=== PATIENT | female | born 1945 | race Caucasian/White ===

== ENCOUNTER 2019-09-27 09:03 | Observation (INO) | payer MEDICARE, OTHER ==
[2019-09-27] VITALS (11 sets, daily range): BP systolic 137–164; BP diastolic 56–84
[~2019-09-27] VITALS: Ht 157.5 cm; Wt 75.0 kg
[~2019-09-27 09:03] MED LIST: ALBU8HFA PO; APIX5TAB3 PO; ASPI-1265 PO; ATOR80TA PO; BECL8.7A6 INH; CARV6.253 PO; FURO-150 PO; METF500T PO; POTA10TA10 PO; PRED20TA PO
[2019-09-27 09:31] LABS: BASOPHILS # (AUTO) 0.1 X10'3 (0-0.2); BASOPHILS % (AUTO) 0.6 % (0-1); EOSINOPHILS # (AUTO) 0.2 X10'3 (0-0.9); EOSINOPHILS % (AUTO) 1.7 % (0-6); LYMPHOCYTES # (AUTO) 1.3 X10'3 (1.1-4.8); LYMPHOCYTES % (AUTO) 13.3 % (21-51); MEAN CORPUSCULAR HEMOGLOBIN 26.6 PG (27.0-31.0); MEAN CORPUSCULAR VOLUME 85.8 FL (78-98); MEAN PLATELET VOLUME 9.2 FL (7.4-10.4); MONOCYTES # (AUTO) 1.2 X10'3 (0-0.9); MONOCYTES % (AUTO) 12.4 % (2-12); NEUTROPHILS # (AUTO) 6.8 X10'3 (1.8-7.7); PLATELET COUNT 425 X10'3 (140-440); RED BLOOD COUNT 1.99 X10'6 (4.20-5.60); RED CELL DISTRIBUTION WIDTH 14.2 % (11.5-14.5); WHITE BLOOD COUNT 9.4 X10'3 (4.5-11.0)
[2019-09-27 09:35] LABS: HEMOGLOBIN 5.3 g/dl (12.0-16.0)
[2019-09-27 09:36] LABS: HEMATOCRIT 17.1 % (35.0-45.0)
[2019-09-27 09:45] LABS: PARTIAL THROMBOPLASTIN TIME 24 SECONDS (22-32)
[2019-09-27 09:50] LABS: ALANINE AMINOTRANSFERASE 234 U/L (12-78); ALBUMIN 3.1 G/DL (3.4-5.0); ALBUMIN/GLOBULIN RATIO 0.9 (1.1-1.5); ALKALINE PHOSPHATASE 85 IU/L (46-116); ANION GAP 13 (8-16); ASPARTATE AMINO TRANSFERASE 160 U/L (10-37); BILIRUBIN,TOTAL 0.6 MG/DL (0.1-1.0); BLOOD UREA NITROGEN 35 MG/DL (7-18); BUN/CREATININE RATIO 19.4 (6.6-38.0); CALCIUM 8.7 MG/DL (8.5-10.1); CHLORIDE 106 MMOL/L (99-107); GLUCOSE 147 MG/DL (70-104); POTASSIUM 4.4 MMOL/L (3.5-5.1); SODIUM 143 MMOL/L (135-145); TOTAL CARBON DIOXIDE 24.4 MMOL/L (24-32); TOTAL PROTEIN 6.4 G/DL (6.4-8.2); eGFR 28 ML/MIN
[2019-09-27] MEDS ORDERED: pantoprazole 40 MG vial IV ONE (09:55)
[2019-09-27] MEDS ORDERED: mag hydrox/Alum hydrox/simeth 30ml oral suspension PO PRN (10:20)
[2019-09-27] MEDS ORDERED: magnesium hydroxide 30ml (MOM) UD suspension PO PRN (10:20)
[2019-09-27] MEDS ORDERED: HYDROcodone/acetaminophen 10/325mg tab PO PRN (10:20)
[2019-09-27] MEDS ORDERED: magnesium 4gm in 100ml NS 100 ML IV PRN (10:20)
[2019-09-27] MEDS ORDERED: magnesium Cl slow-release 64mg tablet PO PRN (10:20)
[2019-09-27] MEDS ORDERED: ondansetron/PF 4mg/2ml inj IV PRN (10:20)
[2019-09-27] MEDS ORDERED: HYDROcodone/acetaminophen 5mg/325mg tablet PO PRN (10:20)
[2019-09-27] MEDS ORDERED: potassium Cl 20 mEq SR tablet PO PRN ×2 (10:20)
[2019-09-27] MEDS ORDERED: potassium CL 10mEq/100ml bag 100 ML IV PRN ×2 (10:20)
[2019-09-27] MEDS ORDERED: magnesium 2GM in 50ml NS 50 ML IV PRN (10:20)
[2019-09-27] MEDS ORDERED: acetaminophen 325mg tablet PO PRN ×2 (10:20)
[2019-09-27 11:26] LABS: OCCULT BLOOD STOOL NEGATIVE (Neg)
--- NOTE | 2019-09-27 11:30 | NUR ---
Patient in room ORTHO 4009. I have received report from Ryan ALVARADO and had the opportunity to ask questions and assume patient care. Ryan said he did not start the blood transfusion in the ER, with the patients Hgb 5.3. He said the doctor wanted to start blood transfusion up stairs.
[2019-09-27] MEDS ORDERED: MULT-933 PO (13:36)
[2019-09-27] MEDS ORDERED: CYAN-34 PO (13:39)
[2019-09-27] MEDS ORDERED: OMEP40CA13 PO (13:40)
[2019-09-27] MEDS ORDERED: IRON45TA7 PO (13:43)
[2019-09-27 14:42] LABS: MEAN CORPUSCULAR HEMOGLOBIN 28.2 PG (27.0-31.0); MEAN CORPUSCULAR HGB CONC 32.7 g/dL (33.0-36.5); MEAN CORPUSCULAR VOLUME 86.4 FL (78-98); PLATELET COUNT 389 X10'3 (140-440); RED BLOOD COUNT 2.33 X10'6 (4.20-5.60); RED CELL DISTRIBUTION WIDTH 14.3 % (11.5-14.5); WHITE BLOOD COUNT 8.7 X10'3 (4.5-11.0)
[2019-09-27 14:51] LABS: HEMOGLOBIN 6.6 g/dl (12.0-16.0)
[2019-09-27 14:52] LABS: HEMATOCRIT 20.1 % (35.0-45.0)
[2019-09-27 15:05] LABS: HEMOGLOBIN A1C 5.2 % (4.5-6.2)
[2019-09-27 15:48] LABS: % IRON SATURATION 8 % (11-46); IRON 23 UG/DL (49-151); TOTAL IRON BINDING CAPACITY 290 UG/DL (259-388)
[2019-09-27 16:59] LABS: FERRITIN 20 NG/ML (8-252)
[2019-09-27] MEDS: metFORMIN 500mg tablet PO SCH (17:33)
--- NOTE | 2019-09-27 18:04 | NUR ---
Problems reprioritized. Patient report given, questions answered & plan of care reviewed with Daya ALVARADO.
--- NOTE | 2019-09-27 18:17 | NUR ---
Patient in room ORTHO 4009. I have received report from Dominic ALVARADO and had the opportunity to ask questions and assume patient care.
[2019-09-27 19:01] LABS: HEMATOCRIT 22.8 % (35.0-45.0); HEMOGLOBIN 7.7 g/dl (12.0-16.0); MEAN CORPUSCULAR HEMOGLOBIN 28.8 PG (27.0-31.0); MEAN CORPUSCULAR HGB CONC 33.5 g/dL (33.0-36.5); MEAN CORPUSCULAR VOLUME 85.8 FL (78-98); MEAN PLATELET VOLUME 9.2 FL (7.4-10.4); PLATELET COUNT 371 X10'3 (140-440); RED BLOOD COUNT 2.66 X10'6 (4.20-5.60); WHITE BLOOD COUNT 9.4 X10'3 (4.5-11.0)
[2019-09-27] MEDS: furosemide 20MG tablet PO SCH (19:54)
[2019-09-27] MEDS: carvedilol 6.25mg tablet PO SCH (19:54)
[2019-09-27] MEDS: K and/or MAG REPLACEMENT MC SCH (19:58)
[2019-09-27] MEDS ORDERED: temazepam 15mg capsule PO PRN (21:00)
[2019-09-28 06:00] VITALS: BP 147/50
--- NOTE | 2019-09-28 06:22 | NUR ---
Problems reprioritized. Patient report given, questions answered & plan of care reviewed with Tori ALVARADO.
--- NOTE | 2019-09-28 06:25 | NUR ---
Patient in room ORTHO 4009. I have received report from [facility] and had the opportunity to ask questions and assume patient care.
[2019-09-28 06:51] LABS: HEMATOCRIT 22.6 % (35.0-45.0); HEMOGLOBIN 7.6 g/dl (12.0-16.0); MEAN CORPUSCULAR HEMOGLOBIN 28.7 PG (27.0-31.0); MEAN CORPUSCULAR HGB CONC 33.8 g/dL (33.0-36.5); MEAN PLATELET VOLUME 9.1 FL (7.4-10.4); PLATELET COUNT 370 X10'3 (140-440); RED BLOOD COUNT 2.66 X10'6 (4.20-5.60); RED CELL DISTRIBUTION WIDTH 14.2 % (11.5-14.5); WHITE BLOOD COUNT 8.5 X10'3 (4.5-11.0)
[2019-09-28] MEDS: K and/or MAG REPLACEMENT MC SCH (07:16)
[2019-09-28] MEDS: metFORMIN 500mg tablet PO SCH (07:25)
[2019-09-28 07:27] LABS: ANION GAP 12 (8-16); BLOOD UREA NITROGEN 35 MG/DL (7-18); CALCIUM 8.6 MG/DL (8.5-10.1); CHLORIDE 106 MMOL/L (99-107); CREATININE 1.67 MG/DL (0.40-0.90); GLUCOSE 98 MG/DL (70-104); MAGNESIUM 2.2 MG/DL (1.5-2.4); POTASSIUM 4.5 MMOL/L (3.5-5.1); SODIUM 143 MMOL/L (135-145); TOTAL CARBON DIOXIDE 25.5 MMOL/L (24-32); eGFR 30 ML/MIN
[2019-09-28] MEDS: carvedilol 6.25mg tablet PO SCH (07:29)
[2019-09-28] MEDS ORDERED: pantoprazole 40mg Tablet.DR PO SCH (07:30)
[2019-09-28] MEDS: furosemide 20MG tablet PO SCH (07:30)
[2019-09-28] MEDS ORDERED: multivitamins, therapeutics tablet PO SCH (08:00)
[2019-09-28] MEDS ORDERED: FERROUS SULFATE 142 MG TABLET.ER (45mg elemental) PO SCH (08:00)
[2019-09-28] MEDS ORDERED: potassium chloride 10mEq ER tablet PO SCH (08:00)
--- NOTE | 2019-09-28 09:24 | NUR ---
DM consult: Pt with A1c 5.2, DM education not warranted at this time. Will continue to follow. Addendum: 09/28/19 at [address] Amended: Links added.
[2019-09-28 10:00] VITALS: BP 126/70
[2019-09-28] MEDS ORDERED: FERR142T7 PO (11:45)
--- NOTE | 2019-09-28 12:12 | NUR ---
Discharge orders in. Pt's son will be picking her up after he is off work at 16:00.
--- NOTE | 2019-09-28 16:30 | NUR ---
Reviewed discharge instructions with pt. Pt verbalized understanding. Pt is alert, oriented and does not have c/o pain or discomfort at this time. Pt was wheeled downstairs to be driven home by her son. All of pt's belongings were returned to pt.
--- NOTE | 2019-10-02 15:22 | NUR ---
Case Management DC follow up: spoke to pt via telephone: reported, "doing great","getting strength back", "I am better than ever". Denies SOB, resp distress, NV, CARRILLO, dizziness, weakness, cp, emergent/acute general pain. verbalizes understanding of meds, why prescribed, taking as ordered, no ase noted. pt states unable to get the OTC Fe slo release 142 mg so just got OTC 135mg. Stated she will talk to PCP about a prescription and if what she was able to get OTC is fine. pt does have O2 w/[employer], but has not needed to use for about 3 years. Verbalizes understanding of s/s that would warrant 9-11/ER visit for evaluation. needs met, questions answered at ID. No further questions at this time. Addendum: 10/02/19 at 1529 by Peace Hadley RN Case Management DC follow up: pt acknowledged advised to have discussion w/PCP about considering colonoscopy, EGD, obstetrical tech referrals.
== END 2019-09-28 16:30 | disposition home or self-care (01) ==
LOC: ER 09:04 → ED HOLD 10:16 → ORTHO 4S 11:20
PROVIDERS: ADMIT Family Medicine; ATTEND Family Medicine
DX: D62 Acute posthemorrhagic anemia (principal); I13.0 Hypertensive heart and chronic kidney disease with heart failure and stage 1 through stage 4 chronic kidney disease, or unspecified chronic kidney disease; E11.22 Type 2 diabetes mellitus with diabetic chronic kidney disease; I50.9 Heart failure, unspecified; N18.3 Chronic kidney disease, stage 3 (moderate); J44.9 Chronic obstructive pulmonary disease, unspecified; I25.2 Old myocardial infarction; E78.00 Pure hypercholesterolemia, unspecified; K92.2 Gastrointestinal hemorrhage, unspecified; E78.5 Hyperlipidemia, unspecified; I48.91 Unspecified atrial fibrillation; I25.10 Atherosclerotic heart disease of native coronary artery without angina pectoris; Z95.1 Presence of aortocoronary bypass graft; Z95.5 Presence of coronary angioplasty implant and graft; Z79.01 Long term (current) use of anticoagulants; Z79.899 Other long term (current) drug therapy
CPT/HCPCS: 36415; 36430; 71045; 80048; 80053; 82272; 82728; 82746; 82948; 83036; 83540; 83550; 83735; 85025; 85027; 85610; 85730; 86885; 86900; 86901; 86920; 87081; 93005; 96374; 97116; 97161; 97530; 99291; C9113; G0378; P9016; 12001

== ENCOUNTER 2020-07-31 17:35 | Inpatient (IN) | payer MEDICARE, OTHER ==
[~2020-07-31] VITALS: Ht 162.6 cm; Wt 88.1 kg
[~2020-07-31 17:35] MED LIST changes: -ALBU8HFA PO; -APIX5TAB3 PO; -ASPI-1265 PO; -BECL8.7A6 INH; +CEPH500C5 PO; +CYAN-34 PO; +DOXY-224 PO; +FERR142T7 PO; +MULT-933 PO; +OMEP40CA13 PO; -PRED20TA PO
[2020-07-31] MEDS ORDERED: LIDOcaine 2% 10ml TOPICAL JELLY (Urojet) TP ONE ×2 (18:05→20:30)
[2020-07-31 18:43] LABS: BASOPHILS % (AUTO) 0.4 % (0-1); EOSINOPHILS # (AUTO) 0.2 X10'3 (0-0.9); EOSINOPHILS % (AUTO) 2.7 % (0-6); LYMPHOCYTES # (AUTO) 0.7 X10'3 (1.1-4.8); LYMPHOCYTES % (AUTO) 10.3 % (21-51); MONOCYTES # (AUTO) 0.6 X10'3 (0-0.9); MONOCYTES % (AUTO) 9.4 % (2-12); NEUTROPHILS # (AUTO) 5.1 X10'3 (1.8-7.7); NEUTROPHILS % (AUTO) 77.2 % (42-75)
[2020-07-31 18:54] LABS: ALANINE AMINOTRANSFERASE 33 U/L (12-78); ALBUMIN 2.9 G/DL (3.4-5.0); ALBUMIN/GLOBULIN RATIO 0.8 (1.1-1.5); ALKALINE PHOSPHATASE 114 IU/L (46-116); ANION GAP -2 (8-16); ASPARTATE AMINO TRANSFERASE 21 U/L (10-37); BILIRUBIN,TOTAL 0.7 MG/DL (0.1-1.0); BLOOD UREA NITROGEN 42 MG/DL (7-18); BUN/CREATININE RATIO 22.3 (6.6-38.0); CALCIUM 9.3 MG/DL (8.5-10.1); CHLORIDE 110 MMOL/L (99-107); CREATININE 1.88 MG/DL (0.40-0.90); GLUCOSE 131 MG/DL (70-104); POTASSIUM 5.8 MMOL/L (3.5-5.1); SODIUM 147 MMOL/L (135-145); TOTAL CARBON DIOXIDE 38.6 MMOL/L (24-32); TOTAL PROTEIN 6.4 G/DL (6.4-8.2); eGFR 26 ML/MIN
[2020-07-31 18:55] LABS: CLARITY,URINE CLEAR (Clear); COLOR,URINE YELLOW (Yellow); GLUCOSE, URINE NEGATIVE (Neg); KETONES,URINE NEGATIVE (Neg); LEUKOCYTE ESTERASE ,URINE NEGATIVE (Neg); NITRITES, URINE NEGATIVE (Neg); OCCULT BLOOD,URINE NEGATIVE (Neg); PROTEIN,URINE 30 mg/dl (Neg); UROBILINOGEN,URINE 0.2 E.U/dL (0.2-1.0)
[2020-07-31 18:56] LABS: UA COLLECTION TYPE FOLEY CATH
[2020-07-31 18:58] LABS: BACTERIA,URINE 1+ /HPF (Neg); RBC,URINE NONE SEEN /HPF (0-2); SQUAMOUS EPITHELIAL CELL,UR MODERATE /LPF (FEW); WBC,URINE NONE SEEN /HPF (0-4)
[2020-07-31 19:02] LABS: LIPASE 197 U/L (73-393)
[2020-07-31 19:15] LABS: HEMATOCRIT 41.5 % (35.0-45.0); HEMOGLOBIN 13.1 g/dl (12.0-16.0); MEAN CORPUSCULAR HEMOGLOBIN 29.7 PG (27.0-31.0); MEAN CORPUSCULAR HGB CONC 31.4 g/dL (33.0-36.5); MEAN CORPUSCULAR VOLUME 94.5 FL (78-98); MEAN PLATELET VOLUME 8.2 FL (7.4-10.4); PLATELET COUNT 242 X10'3 (140-440); RED CELL DISTRIBUTION WIDTH 17.8 % (11.5-14.5)
[2020-07-31 19:41] LABS: TROPONIN I 0.05 NG/ML (0.0-0.05)
[2020-07-31] MEDS ORDERED: ondansetron/PF 4mg/2ml inj IV PRN (20:30)
[2020-07-31] MEDS ORDERED: bisacodyl 10mg suppository rectal RC PRN (20:30)
[2020-07-31] MEDS ORDERED: magnesium Cl slow-release 64mg tablet PO PRN (20:30)
[2020-07-31] MEDS ORDERED: potassium Cl 20 mEq SR tablet PO PRN ×2 (20:30)
[2020-07-31] MEDS ORDERED: potassium CL 10mEq/100ml bag 100 ML IV PRN ×2 (20:30)
[2020-07-31] MEDS ORDERED: magnesium 4gm in 100ml NS 100 ML IV PRN (20:30)
[2020-07-31] MEDS ORDERED: mag hydrox/Alum hydrox/simeth 30ml oral suspension PO PRN (20:30)
[2020-07-31] MEDS ORDERED: acetaminophen 325mg tablet PO PRN (20:30)
[2020-07-31] MEDS ORDERED: magnesium 2GM in 50ml NS 50 ML IV PRN (20:30)
[2020-07-31] MEDS ORDERED: FURO-149 PO (21:56)
--- NOTE | 2020-07-31 22:04 | NUR ---
Ladonna saavedra in ED - 07/31/20 at 2205 by SONYA GAVE PATIENT TURKEY SANDWICH, JUICE AND WATER. ALSO PROVIDED A WARM BLANKET AT THIS TIME.
--- NOTE | 2020-08-01 01:40 | NUR ---
Pt falling asleep during DART. Pt asked if I can not continue DART at this time and to let her sleep. Will let patient sleep and continue to monitor.
[2020-08-01 02:30] VITALS: BP 99/51
[2020-08-01 02:40] LABS: BASOPHILS % (AUTO) 0.4 % (0-1); EOSINOPHILS # (AUTO) 0.1 X10'3 (0-0.9); EOSINOPHILS % (AUTO) 0.8 % (0-6); LYMPHOCYTES # (AUTO) 0.8 X10'3 (1.1-4.8); LYMPHOCYTES % (AUTO) 10.1 % (21-51); MEAN PLATELET VOLUME 8.6 FL (7.4-10.4); MONOCYTES # (AUTO) 0.8 X10'3 (0-0.9); MONOCYTES % (AUTO) 10.1 % (2-12); NEUTROPHILS # (AUTO) 6.3 X10'3 (1.8-7.7); NEUTROPHILS % (AUTO) 78.6 % (42-75)
[2020-08-01 02:57] LABS: ALANINE AMINOTRANSFERASE 37 U/L (12-78); ALBUMIN 2.9 G/DL (3.4-5.0); ALBUMIN/GLOBULIN RATIO 0.9 (1.1-1.5); ALKALINE PHOSPHATASE 110 IU/L (46-116); ANION GAP 1 (8-16); ASPARTATE AMINO TRANSFERASE 22 U/L (10-37); BILIRUBIN,TOTAL 0.7 MG/DL (0.1-1.0); BLOOD UREA NITROGEN 42 MG/DL (7-18); BUN/CREATININE RATIO 21.5 (6.6-38.0); CALCIUM 9.2 MG/DL (8.5-10.1); CHLORIDE 108 MMOL/L (99-107); CREATININE 1.95 MG/DL (0.40-0.90); GLUCOSE 161 MG/DL (70-104); POTASSIUM 4.9 MMOL/L (3.5-5.1); SODIUM 146 MMOL/L (135-145); TOTAL CARBON DIOXIDE 36.6 MMOL/L (24-32); TOTAL PROTEIN 6.3 G/DL (6.4-8.2); eGFR 25 ML/MIN
[2020-08-01 03:02] LABS: HEMATOCRIT 37.6 % (35.0-45.0); HEMOGLOBIN 11.8 g/dl (12.0-16.0); MEAN CORPUSCULAR HEMOGLOBIN 29.6 PG (27.0-31.0); MEAN CORPUSCULAR HGB CONC 31.5 g/dL (33.0-36.5); MEAN CORPUSCULAR VOLUME 94.2 FL (78-98); PLATELET COUNT 217 X10'3 (140-440); RED BLOOD COUNT 3.99 X10'6 (4.20-5.60)
[2020-08-01 03:04] LABS: MAGNESIUM 2.5 MG/DL (1.5-2.4)
--- NOTE | 2020-08-01 05:31 | NUR ---
Orientee documentation: I have reviewed and agree with all interventions, assessments performed and documented by Karen Domingo Medication Administration: For this medication-pass time frame, all medication were reviewed, dispensed, administered and documented per hospital policy by Karen ALVARADO
[2020-08-01] MEDS ORDERED: MESSAGE TO PHARMACY PO ONE (06:05)
[2020-08-01] MEDS ORDERED: glucagon, human recombinant 1mg kit SUBCUT PRN (06:05)
[2020-08-01] MEDS ORDERED: dextrose ORAL solution 15 GM/59 ML bottle PO PRN ×2 (06:05)
[2020-08-01] MEDS ORDERED: dextrose 50%-water 50ml dispensing syringe IV PRN ×2 (06:05)
--- NOTE | 2020-08-01 06:15 | NUR ---
Problems reprioritized. Patient report given, questions answered & plan of care reviewed with Rika ALVARADO.
--- NOTE | 2020-08-01 06:18 | NUR ---
Problems reprioritized. Patient report given, questions answered & plan of care reviewed with Rika ALVARADO.
--- NOTE | 2020-08-01 06:48 | NUR ---
paged dr herrera re: called rapid response. pt stuporous, vss
--- NOTE | 2020-08-01 06:51 | NUR ---
PAGED DR REYNOLDS RE: PAGER ID: [phone] MESSAGE: YUE JONES.. CALLED [facility]. [id number]
[2020-08-01 07:00] VITALS: BP 113/63
[2020-08-01 07:16] LABS: ABG BASE EXCESS 0.9 mmol/L (-2.0-2.0); ABG HCO3 30.2 mmol/L (22.0-26.0); ABG PO2 (T) 43.6 mmHg (75.0-100.0); ALLEN'S TEST POSITIVE; FCOHb 1.3 % (0.0-3.9); FMetHb 0.1 % (0.0-1.5); FO2Hb 84.8 % (94-97); PATIENT TEMPERATURE 36.3; TOTAL HEMOGLOBIN 13.2 G/dl (12.0-16.0)
[2020-08-01] MEDS: K and/or MAG REPLACEMENT MC SCH ×2 (08:00→20:00)
[2020-08-01] MEDS: carvedilol 6.25mg tablet PO SCH ×2 (08:00→20:21)
[2020-08-01] MEDS: docusate sod 100mg capsule PO SCH ×2 (08:00→20:21)
[2020-08-01] MEDS: furosemide 40mg/4ml inj IV SCH ×2 (08:37→20:20)
[2020-08-01 11:00] VITALS: BP 109/66
--- NOTE | 2020-08-01 12:49 | NUR ---
DM consult, A1c 7.1; pt previously given written DM education 06/04; additional DM education not indicated at this time. Addendum: 08/01/20 at [address] Amended: Links added.
[2020-08-01 14:15] LABS: ABG BASE EXCESS 5.7 mmol/L (-2.0-2.0); ABG HCO3 34.3 mmol/L (22.0-26.0); ABG OXYGEN SATURATION 98.6 % (94-97); ABG PCO2 (T) 69.3 mmHg (32.0-45.0); ABG PO2 (T) 122.4 mmHg (75.0-100.0); ALLEN'S TEST POSITIVE; FMetHb 0.1 % (0.0-1.5); FO2Hb 97.5 % (94-97); PATIENT TEMPERATURE 36.3; RESPIRATORY RATE 28 b/min; TIDAL VOLUME 802 mL; TOTAL HEMOGLOBIN 12.6 G/dl (12.0-16.0)
--- NOTE | 2020-08-01 14:21 | NUR ---
PAGER ID: [phone] MESSAGE: [id number] JESSE. NEW ABGS : PH 7.309, PCO2 69.3, PO2 122.4, KAMARI PCU
[2020-08-01 16:14] VITALS: BP 100/54
--- NOTE | 2020-08-01 17:57 | NUR ---
Patient in room U 3014. I have received report from MARTHA ALVARADO and had the opportunity to ask questions and assume patient care. Addendum: 08/01/20 at 3727 by Juliet Lutz RN TIME ON NOTE SHOULD BE 2937
[2020-08-01 18:00] VITALS: BP 108/64
--- NOTE | 2020-08-01 18:31 | NUR ---
Problems reprioritized. Patient report given, questions answered & plan of care reviewed with JOSÉ MIGUEL ALVARADO.
--- NOTE | 2020-08-01 18:51 | NUR ---
Patient in room PCU 3014. I have received report from Rika ALVARADO and had the opportunity to ask questions and assume patient care.
[2020-08-01] MEDS ORDERED: enoxaparin 40mg/0.4ml syringe SQ SCH (20:00)
[2020-08-01] MEDS: enoxaparin 30mg/0.3ml syringe SQ SCH (20:21)
[2020-08-01] MEDS: insulin glargine (Lantus) pen - multi-dose SQ SCH (21:00)
[2020-08-01] MEDS ORDERED: atorvastatin 20mg tablet PO SCH (21:00)
[2020-08-01 22:00] VITALS: BP 103/58
[2020-08-01] MEDS: HYDROcodone/acetaminophen 5mg/325mg tablet PO PRN (22:50)
[2020-08-02 02:00] VITALS: BP 110/61
[2020-08-02 06:00] VITALS: BP 95/56
[2020-08-02 06:07] LABS: BASOPHILS % (AUTO) 0.5 % (0-1); EOSINOPHILS # (AUTO) 0.2 X10'3 (0-0.9); EOSINOPHILS % (AUTO) 3.1 % (0-6); HEMATOCRIT 34.6 % (35.0-45.0); HEMOGLOBIN 10.9 g/dl (12.0-16.0); LYMPHOCYTES # (AUTO) 0.8 X10'3 (1.1-4.8); LYMPHOCYTES % (AUTO) 13.2 % (21-51); MEAN CORPUSCULAR HEMOGLOBIN 28.8 PG (27.0-31.0); MEAN CORPUSCULAR HGB CONC 31.5 g/dL (33.0-36.5); MEAN CORPUSCULAR VOLUME 91.4 FL (78-98); MEAN PLATELET VOLUME 8.6 FL (7.4-10.4); MONOCYTES # (AUTO) 0.7 X10'3 (0-0.9); MONOCYTES % (AUTO) 11.5 % (2-12); NEUTROPHILS # (AUTO) 4.5 X10'3 (1.8-7.7); NEUTROPHILS % (AUTO) 71.7 % (42-75); PLATELET COUNT 194 X10'3 (140-440); RED BLOOD COUNT 3.79 X10'6 (4.20-5.60); WHITE BLOOD COUNT 6.2 X10'3 (4.5-11.0)
[2020-08-02 06:23] LABS: ALANINE AMINOTRANSFERASE 27 U/L (12-78); ALBUMIN 2.3 G/DL (3.4-5.0); ALBUMIN/GLOBULIN RATIO 0.8 (1.1-1.5); ALKALINE PHOSPHATASE 97 IU/L (46-116); ANION GAP 5 (8-16); ASPARTATE AMINO TRANSFERASE 17 U/L (10-37); BLOOD UREA NITROGEN 44 MG/DL (7-18); BUN/CREATININE RATIO 23.9 (6.6-38.0); CALCIUM 8.6 MG/DL (8.5-10.1); CHLORIDE 103 MMOL/L (99-107); CREATININE 1.84 MG/DL (0.40-0.90); GLUCOSE 115 MG/DL (70-104); MAGNESIUM 2.3 MG/DL (1.5-2.4); POTASSIUM 4.2 MMOL/L (3.5-5.1); SODIUM 144 MMOL/L (135-145); TOTAL PROTEIN 5.2 G/DL (6.4-8.2); eGFR 27 ML/MIN
--- NOTE | 2020-08-02 06:40 | NUR ---
Patient in room PCU 3014. I have received report from Edel ALVARADO and had the opportunity to ask questions and assume patient care.
--- NOTE | 2020-08-02 06:48 | NUR ---
Problems reprioritized. Patient report given, questions answered & plan of care reviewed with Jaspal ALVARADO.
[2020-08-02] MEDS: furosemide 40mg/4ml inj IV SCH ×2 (07:51→20:15)
[2020-08-02] MEDS: carvedilol 6.25mg tablet PO SCH ×2 (07:51→20:16)
[2020-08-02] MEDS: docusate sod 100mg capsule PO SCH ×2 (07:51→20:16)
[2020-08-02] MEDS: K and/or MAG REPLACEMENT MC SCH ×2 (08:00→20:00)
[2020-08-02 11:00] VITALS: BP 104/60
[2020-08-02 12:06] LABS: ABG HCO3 36.3 mmol/L (22.0-26.0); ABG OXYGEN SATURATION 98.4 % (94-97); ABG PCO2 (T) 57.4 mmHg (32.0-45.0); ABG PO2 (T) 117.8 mmHg (75.0-100.0); ALLEN'S TEST POSITIVE; FCOHb 0.4 % (0.0-3.9); FMetHb 0.1 % (0.0-1.5); FO2Hb 97.9 % (94-97); RESPIRATORY RATE 28 b/min; TOTAL HEMOGLOBIN 11.9 G/dl (12.0-16.0)
--- NOTE | 2020-08-02 14:44 | NUR ---
PAGER ID: [phone] MESSAGE: Re: June Ebonie. Room: [facility]. Pt is not on any blood thinners. Do you want heparin subq started? -[facility] #[id number] Dr. Roman paged concerning pt's blood thinners.
[2020-08-02 15:00] VITALS: BP 103/57
[2020-08-02 18:00] VITALS: BP 105/65
--- NOTE | 2020-08-02 18:20 | NUR ---
Problems reprioritized. Patient report given, questions answered & plan of care reviewed with Edel ALVARADO.
--- NOTE | 2020-08-02 18:48 | NUR ---
Patient in room PCU 3014. I have received report from Jaspal ALVARADO and had the opportunity to ask questions and assume patient care.
[2020-08-02] MEDS: atorvastatin 20mg tablet PO SCH (20:16)
[2020-08-02] MEDS: enoxaparin 30mg/0.3ml syringe SQ SCH (20:17)
[2020-08-02] MEDS: HYDROcodone/acetaminophen 5mg/325mg tablet PO PRN (20:17)
[2020-08-02] MEDS: insulin glargine (Lantus) pen - multi-dose SQ SCH (21:00)
[2020-08-02 22:00] VITALS: BP 107/56
[2020-08-03 02:00] VITALS: BP 105/76
[2020-08-03 06:12] LABS: BASOPHILS % (AUTO) 0.5 % (0-1); EOSINOPHILS # (AUTO) 0.2 X10'3 (0-0.9); EOSINOPHILS % (AUTO) 3.3 % (0-6); HEMATOCRIT 33.1 % (35.0-45.0); HEMOGLOBIN 10.6 g/dl (12.0-16.0); LYMPHOCYTES # (AUTO) 1.1 X10'3 (1.1-4.8); LYMPHOCYTES % (AUTO) 18.9 % (21-51); MEAN CORPUSCULAR HEMOGLOBIN 29.1 PG (27.0-31.0); MEAN CORPUSCULAR VOLUME 90.7 FL (78-98); MEAN PLATELET VOLUME 8.9 FL (7.4-10.4); MONOCYTES # (AUTO) 0.7 X10'3 (0-0.9); MONOCYTES % (AUTO) 12.6 % (2-12); NEUTROPHILS # (AUTO) 3.8 X10'3 (1.8-7.7); NEUTROPHILS % (AUTO) 64.7 % (42-75); PLATELET COUNT 179 X10'3 (140-440); RED BLOOD COUNT 3.64 X10'6 (4.20-5.60); RED CELL DISTRIBUTION WIDTH 18.6 % (11.5-14.5); WHITE BLOOD COUNT 5.9 X10'3 (4.5-11.0)
[2020-08-03 06:47] LABS: ALANINE AMINOTRANSFERASE 24 U/L (12-78); ALBUMIN 2.2 G/DL (3.4-5.0); ALBUMIN/GLOBULIN RATIO 0.8 (1.1-1.5); ALKALINE PHOSPHATASE 93 IU/L (46-116); ANION GAP 3 (8-16); ASPARTATE AMINO TRANSFERASE 14 U/L (10-37); BLOOD UREA NITROGEN 44 MG/DL (7-18); CALCIUM 9.8 MG/DL (8.5-10.1); CHLORIDE 105 MMOL/L (99-107); CREATININE 1.69 MG/DL (0.40-0.90); GLUCOSE 118 MG/DL (70-104); MAGNESIUM 2.3 MG/DL (1.5-2.4); POTASSIUM 3.7 MMOL/L (3.5-5.1); SODIUM 144 MMOL/L (135-145); TOTAL CARBON DIOXIDE 36.2 MMOL/L (24-32); TOTAL PROTEIN 5.1 G/DL (6.4-8.2); eGFR 30 ML/MIN
[2020-08-03 07:00] VITALS: BP 116/71
--- NOTE | 2020-08-03 07:38 | NUR ---
Problems reprioritized. Patient report given, questions answered & plan of care reviewed with Amada ALVARADO.
[2020-08-03] MEDS: K and/or MAG REPLACEMENT MC SCH ×2 (08:00→20:00)
[2020-08-03] MEDS: furosemide 40mg/4ml inj IV SCH ×2 (08:22→20:20)
[2020-08-03] MEDS: carvedilol 6.25mg tablet PO SCH ×2 (08:23→20:17)
[2020-08-03] MEDS: docusate sod 100mg capsule PO SCH ×2 (08:23→20:17)
[2020-08-03 08:51] LABS: PLATELET ESTIMATE NORMAL
[2020-08-03 08:52] LABS: ANISOCYTOSIS 2+; ELLIPTOCYTES FEW; STOMATOCYTES FEW; TEAR DROP CELLS FEW
[2020-08-03 11:00] VITALS: BP 111/66
[2020-08-03 15:00] VITALS: BP 116/62
[2020-08-03 18:00] VITALS: BP 123/75
--- NOTE | 2020-08-03 18:32 | NUR ---
Problems reprioritized. Patient report given, questions answered & plan of care reviewed with Kaila ALVARADO.
--- NOTE | 2020-08-03 18:50 | NUR ---
Patient in room PCU 3014. I have received report from Amada ALVARADO and had the opportunity to ask questions and assume patient care.
[2020-08-03] MEDS: atorvastatin 20mg tablet PO SCH (20:17)
[2020-08-03] MEDS: enoxaparin 30mg/0.3ml syringe SQ SCH (20:20)
[2020-08-03] MEDS: insulin glargine (Lantus) pen - multi-dose SQ SCH (21:00)
[2020-08-03 22:00] VITALS: BP 119/62
--- NOTE | 2020-08-03 23:08 | NUR ---
Patient in room PCU 3014. I have received report from Juliet ALVARADO and had the opportunity to ask questions and assume patient care.
--- NOTE | 2020-08-03 23:31 | NUR ---
Problems reprioritized. Patient report given, questions answered & plan of care reviewed with Brendan ALVARADO. Patient stable at transfer of care
[2020-08-04] VITALS (7 sets, daily range): BP systolic 107–123; BP diastolic 59–78
--- NOTE | 2020-08-04 06:20 | NUR ---
Problems reprioritized. Patient report given, questions answered & plan of care reviewed with Damir RN.
[2020-08-04 06:24] LABS: BASOPHILS % (AUTO) 0.4 % (0-1); EOSINOPHILS # (AUTO) 0.2 X10'3 (0-0.9); EOSINOPHILS % (AUTO) 3.2 % (0-6); HEMATOCRIT 33.1 % (35.0-45.0); HEMOGLOBIN 10.4 g/dl (12.0-16.0); LYMPHOCYTES # (AUTO) 0.9 X10'3 (1.1-4.8); LYMPHOCYTES % (AUTO) 15.4 % (21-51); MEAN CORPUSCULAR HEMOGLOBIN 28.9 PG (27.0-31.0); MEAN CORPUSCULAR HGB CONC 31.3 g/dL (33.0-36.5); MEAN CORPUSCULAR VOLUME 92.5 FL (78-98); MEAN PLATELET VOLUME 8.6 FL (7.4-10.4); MONOCYTES # (AUTO) 0.7 X10'3 (0-0.9); MONOCYTES % (AUTO) 12.9 % (2-12); NEUTROPHILS # (AUTO) 3.9 X10'3 (1.8-7.7); NEUTROPHILS % (AUTO) 68.1 % (42-75); PLATELET COUNT 169 X10'3 (140-440); RED BLOOD COUNT 3.58 X10'6 (4.20-5.60); RED CELL DISTRIBUTION WIDTH 18.4 % (11.5-14.5); WHITE BLOOD COUNT 5.7 X10'3 (4.5-11.0)
[2020-08-04 06:33] LABS: ALANINE AMINOTRANSFERASE 28 U/L (12-78); ALBUMIN 2.2 G/DL (3.4-5.0); ALBUMIN/GLOBULIN RATIO 0.7 (1.1-1.5); ALKALINE PHOSPHATASE 106 IU/L (46-116); ANION GAP 1 (8-16); ASPARTATE AMINO TRANSFERASE 21 U/L (10-37); BILIRUBIN,TOTAL 0.7 MG/DL (0.1-1.0); BLOOD UREA NITROGEN 44 MG/DL (7-18); BUN/CREATININE RATIO 25.4 (6.6-38.0); CALCIUM 8.2 MG/DL (8.5-10.1); CHLORIDE 105 MMOL/L (99-107); CREATININE 1.73 MG/DL (0.40-0.90); GLUCOSE 112 MG/DL (70-104); MAGNESIUM 2.2 MG/DL (1.5-2.4); POTASSIUM 3.9 MMOL/L (3.5-5.1); SODIUM 142 MMOL/L (135-145); TOTAL CARBON DIOXIDE 35.6 MMOL/L (24-32); TOTAL PROTEIN 5.4 G/DL (6.4-8.2); eGFR 29 ML/MIN
--- NOTE | 2020-08-04 06:37 | NUR ---
Patient in room PCU 3014. I have received report from Brendan ALVARADO and had the opportunity to ask questions and assume patient care.
[2020-08-04] MEDS: K and/or MAG REPLACEMENT MC SCH ×2 (08:00→19:35)
[2020-08-04] MEDS: carvedilol 6.25mg tablet PO SCH ×2 (08:26→19:32)
[2020-08-04] MEDS: docusate sod 100mg capsule PO SCH ×2 (08:26→19:32)
[2020-08-04] MEDS: furosemide 40mg/4ml inj IV SCH ×2 (08:28→19:34)
[2020-08-04] MEDS: mineral oil/petrolatum, white cream 113gm jar TP SCH (08:39)
--- NOTE | 2020-08-04 18:18 | NUR ---
Problems reprioritized. Patient report given, questions answered & plan of care reviewed with Esthela ALVARADO.
--- NOTE | 2020-08-04 18:21 | NUR ---
Patient in room PCU 3014. I have received report from Damir ALVRAADO and had the opportunity to ask questions and assume patient care. Pt sitting up in bed watching tv, no signs of distress, will continue to monitor.
[2020-08-04] MEDS: atorvastatin 20mg tablet PO SCH (19:32)
[2020-08-04] MEDS: enoxaparin 30mg/0.3ml syringe SQ SCH (19:34)
[2020-08-04] MEDS: insulin glargine (Lantus) pen - multi-dose SQ SCH (21:00)
[2020-08-05 02:00] VITALS: BP 118/70
[2020-08-05 06:00] VITALS: BP 111/57
--- NOTE | 2020-08-05 06:29 | NUR ---
Problems reprioritized. Patient report given, questions answered & plan of care reviewed with Diana ALVARADO.
[2020-08-05 07:00] LABS: BASOPHILS % (AUTO) 0.4 % (0-1); EOSINOPHILS # (AUTO) 0.2 X10'3 (0-0.9); EOSINOPHILS % (AUTO) 3.1 % (0-6); HEMATOCRIT 33.2 % (35.0-45.0); HEMOGLOBIN 10.3 g/dl (12.0-16.0); LYMPHOCYTES # (AUTO) 0.9 X10'3 (1.1-4.8); LYMPHOCYTES % (AUTO) 14.6 % (21-51); MEAN CORPUSCULAR HEMOGLOBIN 28.4 PG (27.0-31.0); MEAN CORPUSCULAR VOLUME 91.9 FL (78-98); MEAN PLATELET VOLUME 9.2 FL (7.4-10.4); MONOCYTES # (AUTO) 0.6 X10'3 (0-0.9); MONOCYTES % (AUTO) 10.9 % (2-12); NEUTROPHILS # (AUTO) 4.2 X10'3 (1.8-7.7); PLATELET COUNT 173 X10'3 (140-440); RED BLOOD COUNT 3.62 X10'6 (4.20-5.60); RED CELL DISTRIBUTION WIDTH 18.1 % (11.5-14.5)
--- NOTE | 2020-08-05 07:02 | NUR ---
Patient in room PCU 3014. I have received report from Marina Ortiz and had the opportunity to ask questions and assume patient care.
[2020-08-05 07:35] LABS: ALANINE AMINOTRANSFERASE 33 U/L (12-78); ALBUMIN 2.2 G/DL (3.4-5.0); ALBUMIN/GLOBULIN RATIO 0.6 (1.1-1.5); ALKALINE PHOSPHATASE 125 IU/L (46-116); ANION GAP 5 (8-16); BILIRUBIN,TOTAL 0.7 MG/DL (0.1-1.0); BLOOD UREA NITROGEN 51 MG/DL (7-18); BUN/CREATININE RATIO 27.9 (6.6-38.0); CALCIUM 8.6 MG/DL (8.5-10.1); CHLORIDE 103 MMOL/L (99-107); CREATININE 1.83 MG/DL (0.40-0.90); GLUCOSE 112 MG/DL (70-104); MAGNESIUM 2.3 MG/DL (1.5-2.4); SODIUM 140 MMOL/L (135-145); TOTAL CARBON DIOXIDE 32.2 MMOL/L (24-32); TOTAL PROTEIN 5.7 G/DL (6.4-8.2); eGFR 27 ML/MIN
[2020-08-05] MEDS: K and/or MAG REPLACEMENT MC SCH ×2 (08:00→20:00)
[2020-08-05] MEDS: docusate sod 100mg capsule PO SCH ×2 (08:11→21:07)
[2020-08-05] MEDS: carvedilol 6.25mg tablet PO SCH ×2 (08:11→21:07)
[2020-08-05] MEDS: furosemide 40mg/4ml inj IV SCH ×2 (08:12→21:05)
[2020-08-05] MEDS: mineral oil/petrolatum, white cream 113gm jar TP SCH (08:14)
[2020-08-05 08:16] LABS: ASPARTATE AMINO TRANSFERASE 36 U/L (10-37); POTASSIUM 4.7 MMOL/L (3.5-5.1)
[2020-08-05 11:00] VITALS: BP 128/76
--- NOTE | 2020-08-05 15:21 | NUR ---
Initial: Pt admit with CHF and bilat pleural effusion. Pt on a CHO controlled diet initially with 0% PO intake first two meals however now averaging 75-100% PO intake. D/w dietary to send double protein BIDLD for satiety. [facility] 08/03, receiving routine bowel care. Will continue to follow and monitor need for further nutrition intervention. Recommendations: 1) Continue CHO controlled diet 2) Double protein BIDLD 3) Routine bowel care 4) Scaled weights per rx Addendum: 08/05/20 at [address] Amended: Links added.
[2020-08-05 17:00] VITALS: BP 119/69
[2020-08-05 18:00] VITALS: BP 117/71
--- NOTE | 2020-08-05 18:31 | NUR ---
Problems reprioritized. Patient report given, questions answered & plan of care reviewed with Marina Tolbert.
--- NOTE | 2020-08-05 18:56 | NUR ---
I have received report from Gini calabrese and had the opportunity to ask questions and assume patient care.
[2020-08-05] MEDS: insulin glargine (Lantus) pen - multi-dose SQ SCH (21:00)
[2020-08-05] MEDS: atorvastatin 20mg tablet PO SCH (21:08)
[2020-08-05] MEDS: enoxaparin 30mg/0.3ml syringe SQ SCH (21:08)
[2020-08-05 22:00] VITALS: BP 120/70
[2020-08-06 02:00] VITALS: BP 117/64
--- NOTE | 2020-08-06 06:10 | NUR ---
Patient in room PCU 3014. I have received report from CHRISTIANO Tolbert and had the opportunity to ask questions and assume patient care. Pt sleeping comfortably at change of shift.
--- NOTE | 2020-08-06 06:22 | NUR ---
Problems reprioritized. Patient report given, questions answered & plan of care reviewed with Maisha ALVARADO.
[2020-08-06 07:00] VITALS: BP 107/64
[2020-08-06] MEDS: K and/or MAG REPLACEMENT MC SCH ×2 (08:00→20:00)
[2020-08-06] MEDS: carvedilol 6.25mg tablet PO SCH ×2 (08:31→20:00)
[2020-08-06] MEDS: furosemide 40mg/4ml inj IV SCH ×2 (08:31→20:00)
[2020-08-06] MEDS: docusate sod 100mg capsule PO SCH ×2 (08:31→20:00)
[2020-08-06] MEDS: mineral oil/petrolatum, white cream 113gm jar TP SCH (08:31)
[2020-08-06 11:00] VITALS: BP 122/61
[2020-08-06 15:00] VITALS: BP 124/70
--- NOTE | 2020-08-06 18:21 | NUR ---
Problems reprioritized. Patient report given, questions answered & plan of care reviewed with CHRISTIANO Nichole. Pt sitting up in bed watching tv comfortably at change of shift.
[2020-08-06 19:00] VITALS: BP 143/76
[2020-08-06] MEDS: enoxaparin 30mg/0.3ml syringe SQ SCH (20:00)
[2020-08-06] MEDS: insulin glargine (Lantus) pen - multi-dose SQ SCH (21:00)
[2020-08-06] MEDS: atorvastatin 20mg tablet PO SCH (21:04)
[2020-08-06 23:00] VITALS: BP 130/69
[2020-08-07 03:00] VITALS: BP 113/67
[2020-08-07 06:44] LABS: ALBUMIN 2.4 G/DL (3.4-5.0); ANION GAP 3 (8-16); BASOPHILS % (AUTO) 0.5 % (0-1); BLOOD UREA NITROGEN 57 MG/DL (7-18); BUN/CREATININE RATIO 30.2 (6.6-38.0); CALCIUM 8.8 MG/DL (8.5-10.1); CHLORIDE 103 MMOL/L (99-107); CREATININE 1.89 MG/DL (0.40-0.90); EOSINOPHILS # (AUTO) 0.2 X10'3 (0-0.9); EOSINOPHILS % (AUTO) 2.8 % (0-6); GLUCOSE 134 MG/DL (70-104); HEMATOCRIT 33.7 % (35.0-45.0); HEMOGLOBIN 10.6 g/dl (12.0-16.0); LYMPHOCYTES # (AUTO) 0.9 X10'3 (1.1-4.8); LYMPHOCYTES % (AUTO) 16.5 % (21-51); MAGNESIUM 2.3 MG/DL (1.5-2.4); MEAN CORPUSCULAR HEMOGLOBIN 28.6 PG (27.0-31.0); MEAN CORPUSCULAR HGB CONC 31.4 g/dL (33.0-36.5); MEAN CORPUSCULAR VOLUME 91.1 FL (78-98); MEAN PLATELET VOLUME 8.6 FL (7.4-10.4); MONOCYTES # (AUTO) 0.6 X10'3 (0-0.9); MONOCYTES % (AUTO) 11.7 % (2-12); NEUTROPHILS # (AUTO) 3.8 X10'3 (1.8-7.7); NEUTROPHILS % (AUTO) 68.5 % (42-75); PLATELET COUNT 207 X10'3 (140-440); SODIUM 142 MMOL/L (135-145); TOTAL CARBON DIOXIDE 35.8 MMOL/L (24-32); WHITE BLOOD COUNT 5.5 X10'3 (4.5-11.0); eGFR 26 ML/MIN
[2020-08-07 07:00] VITALS: BP 127/69
[2020-08-07] MEDS: K and/or MAG REPLACEMENT MC SCH ×2 (08:00→20:00)
[2020-08-07] MEDS: mineral oil/petrolatum, white cream 113gm jar TP SCH (08:20)
[2020-08-07] MEDS: furosemide 40mg/4ml inj IV SCH ×2 (08:20→20:47)
[2020-08-07] MEDS: docusate sod 100mg capsule PO SCH ×2 (08:20→20:46)
[2020-08-07] MEDS: carvedilol 6.25mg tablet PO SCH ×2 (08:20→20:46)
--- NOTE | 2020-08-07 08:49 | NUR ---
Patient in room PCU 3014. I have received report from CHRISTIANO Nichole and had the opportunity to ask questions and assume patient care.
[2020-08-07 11:00] VITALS: BP 116/76
[2020-08-07 15:00] VITALS: BP 112/57
--- NOTE | 2020-08-07 18:04 | NUR ---
Problems reprioritized. Patient report given, questions answered & plan of care reviewed with CHRISTIANO Nichole. Pt sitting up eating dinner at change of shift. No signs of distress, all pt needs met at this time.
[2020-08-07 19:00] VITALS: BP 123/73
[2020-08-07] MEDS: atorvastatin 20mg tablet PO SCH (20:46)
[2020-08-07] MEDS: enoxaparin 30mg/0.3ml syringe SQ SCH (20:46)
[2020-08-07] MEDS: insulin glargine (Lantus) pen - multi-dose SQ SCH (20:47)
[2020-08-07 23:00] VITALS: BP 117/69
[2020-08-08 03:00] VITALS: BP 122/70
[2020-08-08 06:33] LABS: BASOPHILS % (AUTO) 0.4 % (0-1); EOSINOPHILS # (AUTO) 0.2 X10'3 (0-0.9); HEMATOCRIT 33.1 % (35.0-45.0); HEMOGLOBIN 10.5 g/dl (12.0-16.0); LYMPHOCYTES # (AUTO) 0.9 X10'3 (1.1-4.8); LYMPHOCYTES % (AUTO) 16.2 % (21-51); MEAN CORPUSCULAR HEMOGLOBIN 29.3 PG (27.0-31.0); MEAN CORPUSCULAR HGB CONC 31.7 g/dL (33.0-36.5); MEAN CORPUSCULAR VOLUME 92.4 FL (78-98); MEAN PLATELET VOLUME 8.1 FL (7.4-10.4); MONOCYTES # (AUTO) 0.7 X10'3 (0-0.9); MONOCYTES % (AUTO) 12.6 % (2-12); NEUTROPHILS # (AUTO) 3.8 X10'3 (1.8-7.7); NEUTROPHILS % (AUTO) 67.8 % (42-75); PLATELET COUNT 204 X10'3 (140-440); RED BLOOD COUNT 3.59 X10'6 (4.20-5.60); RED CELL DISTRIBUTION WIDTH 17.8 % (11.5-14.5); WHITE BLOOD COUNT 5.6 X10'3 (4.5-11.0)
[2020-08-08 06:40] VITALS: BP 128/74
--- NOTE | 2020-08-08 06:40 | NUR ---
Patient in room PCU 3014. I have received report from JIMBO ALVARADO and had the opportunity to ask questions and assume patient care. PT SLEEPING. NO DISTRESS. CALL LIGHT IN REACH Addendum: 08/08/20 at 0847 by Brittani Interiano RN Amended: Links added.
[2020-08-08 06:51] LABS: ALBUMIN 2.3 G/DL (3.4-5.0); ANION GAP 4 (8-16); BLOOD UREA NITROGEN 58 MG/DL (7-18); CALCIUM 8.6 MG/DL (8.5-10.1); CHLORIDE 101 MMOL/L (99-107); CREATININE 1.87 MG/DL (0.40-0.90); GLUCOSE 133 MG/DL (70-104); POTASSIUM 4.1 MMOL/L (3.5-5.1); SODIUM 141 MMOL/L (135-145); TOTAL CARBON DIOXIDE 36.3 MMOL/L (24-32); eGFR 26 ML/MIN
[2020-08-08] MEDS: K and/or MAG REPLACEMENT MC SCH ×2 (08:00→20:00)
[2020-08-08] MEDS: docusate sod 100mg capsule PO SCH ×2 (08:18→20:15)
[2020-08-08] MEDS: furosemide 40mg/4ml inj IV SCH ×2 (08:18→20:15)
[2020-08-08] MEDS: carvedilol 6.25mg tablet PO SCH ×2 (08:18→20:15)
[2020-08-08] MEDS: mineral oil/petrolatum, white cream 113gm jar TP SCH (08:18)
[2020-08-08 11:00] VITALS: BP 116/63
[2020-08-08 15:01] VITALS: BP 109/64
[2020-08-08 18:00] VITALS: BP 127/79
--- NOTE | 2020-08-08 18:10 | NUR ---
Problems reprioritized. Patient report given, questions answered & plan of care reviewed with MARTHA RN. PT EATING DINNER, NO DISTRESS, STATES SHE LOVED HER BED BATH TODAY. CALL LIGHT IN REACH..
--- NOTE | 2020-08-08 18:25 | NUR ---
Patient in room PCU 3014. I have received report from Brittani ALVARADO and had the opportunity to ask questions and assume patient care.
[2020-08-08] MEDS: atorvastatin 20mg tablet PO SCH (20:15)
[2020-08-08] MEDS: enoxaparin 30mg/0.3ml syringe SQ SCH (20:16)
[2020-08-08] MEDS: insulin glargine (Lantus) pen - multi-dose SQ SCH (21:00)
[2020-08-08 23:00] VITALS: BP 125/87
--- NOTE | 2020-08-09 01:27 | NUR ---
Called Dr. Mendoza per patient c/o of insomnia. Pt states she takes Tylenol PM for sleep sometimes at home. Discussed with Dr. Mendoza. Benadryl 25mg HS prn ordered. Will admin shortly.
[2020-08-09] MEDS ORDERED: diphenhydrAMINE 25mg capsule PO PRN (01:30)
[2020-08-09 03:00] VITALS: BP 129/60
[2020-08-09 06:00] VITALS: BP 120/69
--- NOTE | 2020-08-09 06:00 | NUR ---
Patient in room PCU 3014. I have received report from MARTHA and had the opportunity to ask questions and assume patient care.
--- NOTE | 2020-08-09 06:23 | NUR ---
Problems reprioritized. Patient report given, questions answered & plan of care reviewed with Monie ALVARADO.
[2020-08-09] MEDS: K and/or MAG REPLACEMENT MC SCH ×2 (08:00→20:00)
[2020-08-09 08:07] LABS: ALBUMIN 2.4 G/DL (3.4-5.0); ANION GAP 2 (8-16); BLOOD UREA NITROGEN 61 MG/DL (7-18); BUN/CREATININE RATIO 33.2 (6.6-38.0); CHLORIDE 102 MMOL/L (99-107); CREATININE 1.84 MG/DL (0.40-0.90); GLUCOSE 128 MG/DL (70-104); POTASSIUM 4.1 MMOL/L (3.5-5.1); SODIUM 141 MMOL/L (135-145); TOTAL CARBON DIOXIDE 37.2 MMOL/L (24-32); eGFR 27 ML/MIN
[2020-08-09 08:21] LABS: BASOPHILS % (AUTO) 0.7 % (0-1); EOSINOPHILS # (AUTO) 0.2 X10'3 (0-0.9); EOSINOPHILS % (AUTO) 2.7 % (0-6); HEMATOCRIT 32.8 % (35.0-45.0); HEMOGLOBIN 10.6 g/dl (12.0-16.0); LYMPHOCYTES # (AUTO) 0.9 X10'3 (1.1-4.8); LYMPHOCYTES % (AUTO) 15.7 % (21-51); MEAN CORPUSCULAR HEMOGLOBIN 29.5 PG (27.0-31.0); MEAN CORPUSCULAR HGB CONC 32.2 g/dL (33.0-36.5); MEAN CORPUSCULAR VOLUME 91.7 FL (78-98); MEAN PLATELET VOLUME 8.1 FL (7.4-10.4); MONOCYTES # (AUTO) 0.7 X10'3 (0-0.9); MONOCYTES % (AUTO) 11.4 % (2-12); NEUTROPHILS # (AUTO) 4.2 X10'3 (1.8-7.7); NEUTROPHILS % (AUTO) 69.5 % (42-75); PLATELET COUNT 223 X10'3 (140-440); RED BLOOD COUNT 3.58 X10'6 (4.20-5.60); RED CELL DISTRIBUTION WIDTH 17.8 % (11.5-14.5)
[2020-08-09] MEDS: docusate sod 100mg capsule PO SCH ×2 (08:33→20:02)
[2020-08-09] MEDS: furosemide 40mg/4ml inj IV SCH ×2 (08:33→20:02)
[2020-08-09] MEDS: carvedilol 6.25mg tablet PO SCH ×2 (08:33→20:02)
[2020-08-09] MEDS: mineral oil/petrolatum, white cream 113gm jar TP SCH (08:34)
[2020-08-09 11:00] VITALS: BP 120/64
[2020-08-09 15:00] VITALS: BP 122/44
[2020-08-09 18:00] VITALS: BP 137/80
--- NOTE | 2020-08-09 18:13 | NUR ---
Problems reprioritized. Patient report given, questions answered & plan of care reviewed with Nhi ALVARADO.
--- NOTE | 2020-08-09 18:17 | NUR ---
Patient in room PCU 3014. I have received report from Nica ALVARADO and had the opportunity to ask questions and assume patient care.
[2020-08-09] MEDS: enoxaparin 30mg/0.3ml syringe SQ SCH (20:01)
[2020-08-09] MEDS: atorvastatin 20mg tablet PO SCH (20:02)
[2020-08-09] MEDS: insulin glargine (Lantus) pen - multi-dose SQ SCH (21:00)
[2020-08-09 22:00] VITALS: BP 119/68
[2020-08-10] VITALS (8 sets, daily range): BP systolic 98–141; BP diastolic 58–89
[2020-08-10 06:21] LABS: BASOPHILS % (AUTO) 0.6 % (0-1); EOSINOPHILS # (AUTO) 0.1 X10'3 (0-0.9); EOSINOPHILS % (AUTO) 2.4 % (0-6); HEMATOCRIT 35.1 % (35.0-45.0); HEMOGLOBIN 10.9 g/dl (12.0-16.0); LYMPHOCYTES # (AUTO) 0.9 X10'3 (1.1-4.8); LYMPHOCYTES % (AUTO) 16.3 % (21-51); MEAN CORPUSCULAR HEMOGLOBIN 28.7 PG (27.0-31.0); MEAN CORPUSCULAR VOLUME 92.4 FL (78-98); MEAN PLATELET VOLUME 8.2 FL (7.4-10.4); MONOCYTES # (AUTO) 0.6 X10'3 (0-0.9); MONOCYTES % (AUTO) 11.5 % (2-12); NEUTROPHILS # (AUTO) 3.9 X10'3 (1.8-7.7); NEUTROPHILS % (AUTO) 69.2 % (42-75); PLATELET COUNT 228 X10'3 (140-440); RED CELL DISTRIBUTION WIDTH 17.6 % (11.5-14.5); WHITE BLOOD COUNT 5.6 X10'3 (4.5-11.0)
--- NOTE | 2020-08-10 06:28 | NUR ---
Patient in room PCU 3014. I have received report from Nhi ALVARADO and had the opportunity to ask questions and assume patient care.
--- NOTE | 2020-08-10 06:33 | NUR ---
Problems reprioritized. Patient report given, questions answered & plan of care reviewed with Damir RN.
[2020-08-10 06:42] LABS: ALBUMIN 2.5 G/DL (3.4-5.0); ANION GAP -1 (8-16); BLOOD UREA NITROGEN 61 MG/DL (7-18); BUN/CREATININE RATIO 32.3 (6.6-38.0); CHLORIDE 103 MMOL/L (99-107); CREATININE 1.89 MG/DL (0.40-0.90); GLUCOSE 141 MG/DL (70-104); POTASSIUM 4.3 MMOL/L (3.5-5.1); SODIUM 140 MMOL/L (135-145); eGFR 26 ML/MIN
[2020-08-10] MEDS: K and/or MAG REPLACEMENT MC SCH ×2 (08:00→19:50)
[2020-08-10] MEDS: docusate sod 100mg capsule PO SCH ×2 (08:22→19:59)
[2020-08-10] MEDS: furosemide 40mg/4ml inj IV SCH ×2 (08:23→19:59)
[2020-08-10] MEDS: carvedilol 6.25mg tablet PO SCH ×2 (08:23→19:59)
[2020-08-10] MEDS: mineral oil/petrolatum, white cream 113gm jar TP SCH (08:30)
[2020-08-10] MEDS: insulin Lispro (HumaLOG) vial - multi-dose SQ SCH ×2 (13:42→19:49)
--- NOTE | 2020-08-10 16:14 | NUR ---
Reassessment: Pt PO 75-100% avg meals w/ double proteins BIDLD meeting needs. LBM 08/08 copious per EMR. Pending possible thoracentesis for increasing pleural effusion per MD note today. No nutrition concerns at this time. Will continue to monitor. Recommendations: 1) Continue CHO controlled diet 2) Double protein BIDLD 3) bowel care per rx 4) Scaled weights per rx Addendum: 08/10/20 at [address] Amended: Links added.
--- NOTE | 2020-08-10 18:44 | NUR ---
Problems reprioritized. Patient report given, questions answered & plan of care reviewed with ABIOLA ALVARADO.
[2020-08-10] MEDS: atorvastatin 20mg tablet PO SCH (22:38)
[2020-08-10] MEDS: insulin glargine (Lantus) pen - multi-dose SQ SCH (22:40)
[2020-08-11 02:00] VITALS: BP 115/55
[2020-08-11 06:00] VITALS: BP 104/62
[2020-08-11 06:36] LABS: BASOPHILS % (AUTO) 0.3 % (0-1); EOSINOPHILS # (AUTO) 0.1 X10'3 (0-0.9); EOSINOPHILS % (AUTO) 2.3 % (0-6); HEMATOCRIT 33.4 % (35.0-45.0); HEMOGLOBIN 10.4 g/dl (12.0-16.0); LYMPHOCYTES # (AUTO) 0.7 X10'3 (1.1-4.8); LYMPHOCYTES % (AUTO) 13.3 % (21-51); MEAN CORPUSCULAR HEMOGLOBIN 28.6 PG (27.0-31.0); MEAN CORPUSCULAR HGB CONC 31.2 g/dL (33.0-36.5); MEAN CORPUSCULAR VOLUME 91.8 FL (78-98); MONOCYTES # (AUTO) 0.6 X10'3 (0-0.9); MONOCYTES % (AUTO) 11.3 % (2-12); NEUTROPHILS # (AUTO) 3.9 X10'3 (1.8-7.7); NEUTROPHILS % (AUTO) 72.8 % (42-75); PLATELET COUNT 222 X10'3 (140-440); RED BLOOD COUNT 3.64 X10'6 (4.20-5.60); RED CELL DISTRIBUTION WIDTH 17.6 % (11.5-14.5); WHITE BLOOD COUNT 5.4 X10'3 (4.5-11.0)
[2020-08-11 06:57] LABS: ALBUMIN 2.4 G/DL (3.4-5.0); ANION GAP 0 (8-16); BLOOD UREA NITROGEN 63 MG/DL (7-18); BUN/CREATININE RATIO 33.3 (6.6-38.0); CALCIUM 8.9 MG/DL (8.5-10.1); CHLORIDE 102 MMOL/L (99-107); CREATININE 1.89 MG/DL (0.40-0.90); GLUCOSE 107 MG/DL (70-104); POTASSIUM 4.2 MMOL/L (3.5-5.1); SODIUM 140 MMOL/L (135-145); eGFR 26 ML/MIN
--- NOTE | 2020-08-11 07:00 | NUR ---
Patient in room PCU 3014. I have received report from Josafat ALVARADO and had the opportunity to ask questions and assume patient care.
--- NOTE | 2020-08-11 07:06 | NUR ---
Problems reprioritized. Patient report given, questions answered & plan of care reviewed with YUE. Addendum: 08/11/20 at 0706 by Ángel Magana RN Amended: Links added.
[2020-08-11] MEDS: K and/or MAG REPLACEMENT MC SCH ×2 (08:00→20:00)
[2020-08-11] MEDS: furosemide 40mg/4ml inj IV SCH ×2 (09:26→20:23)
[2020-08-11] MEDS: docusate sod 100mg capsule PO SCH ×2 (09:27→20:24)
[2020-08-11] MEDS: carvedilol 6.25mg tablet PO SCH ×2 (09:27→20:24)
[2020-08-11] MEDS: mineral oil/petrolatum, white cream 113gm jar TP SCH (09:30)
[2020-08-11] MEDS: insulin Lispro (HumaLOG) vial - multi-dose SQ SCH ×2 (09:47→13:40)
[2020-08-11 11:00] VITALS: BP 105/63
--- NOTE | 2020-08-11 14:44 | NUR ---
PAGER ID: [phone] MESSAGE: RE: [id number], YUE SAUER. pt has significant pitting edema to BLE R greater than left and to BUE, significant to L arm. change from this a.m. Pt got 60 mg Lasix in a.m. 1100cc out per f/c @1100. Additional Lasix? Yue PCU, [phone] Will continue to monitor pt. offbearer notified
[2020-08-11 15:00] VITALS: BP 106/64
--- NOTE | 2020-08-11 16:00 | NUR ---
Dr phoned and spoke with program architect. aware of increased edema to BLE and BUE. No new orders at this time. Will continue to monitor.
--- NOTE | 2020-08-11 17:30 | NUR ---
DR MCKEON AT BEDSIDE, REPORT GIVEN RE: EDEMA, VS AT 1500: 97.8 ORAL TEMP, 86 HR, 21 RR, 98% ON 2L NC, 106/64 BP, NO C/O DISCOMFORT. NO NEW ORDERS AT THIS TIME. WILL CONTINUE TO MONITOR.
[2020-08-11 18:00] VITALS: BP 121/67
[2020-08-11] MEDS ORDERED: metolazone 2.5mg tablet PO SCH (18:25)
--- NOTE | 2020-08-11 18:30 | NUR ---
Patient in room PCU 3014. I have received report from CHRISTIANO Loomis and had the opportunity to ask questions and assume patient care
--- NOTE | 2020-08-11 18:30 | NUR ---
Problems reprioritized. Patient report given, questions answered & plan of care reviewed with Tali Huff RN.
[2020-08-11] MEDS: atorvastatin 20mg tablet PO SCH (20:24)
[2020-08-11] MEDS: insulin glargine (Lantus) pen - multi-dose SQ SCH ×2 (20:35→22:17)
[2020-08-11 22:00] VITALS: BP 106/64
[2020-08-12 02:00] VITALS: BP 114/70
[2020-08-12 06:00] VITALS: BP 120/73
--- NOTE | 2020-08-12 06:35 | NUR ---
Problems reprioritized. Patient report given, questions answered & plan of care reviewed with CHRISTIANO Martino.
[2020-08-12] MEDS: K and/or MAG REPLACEMENT MC SCH ×2 (08:00→20:00)
[2020-08-12 08:02] LABS: BASOPHILS % (AUTO) 0.4 % (0-1); EOSINOPHILS # (AUTO) 0.1 X10'3 (0-0.9); EOSINOPHILS % (AUTO) 2.1 % (0-6); HEMATOCRIT 35.7 % (35.0-45.0); HEMOGLOBIN 11.1 g/dl (12.0-16.0); LYMPHOCYTES # (AUTO) 0.9 X10'3 (1.1-4.8); LYMPHOCYTES % (AUTO) 15.1 % (21-51); MEAN CORPUSCULAR HEMOGLOBIN 28.6 PG (27.0-31.0); MEAN CORPUSCULAR HGB CONC 31.1 g/dL (33.0-36.5); MEAN CORPUSCULAR VOLUME 92.1 FL (78-98); MONOCYTES # (AUTO) 0.6 X10'3 (0-0.9); MONOCYTES % (AUTO) 10.6 % (2-12); NEUTROPHILS # (AUTO) 4.2 X10'3 (1.8-7.7); NEUTROPHILS % (AUTO) 71.8 % (42-75); PLATELET COUNT 231 X10'3 (140-440); RED BLOOD COUNT 3.87 X10'6 (4.20-5.60); RED CELL DISTRIBUTION WIDTH 17.5 % (11.5-14.5); WHITE BLOOD COUNT 5.8 X10'3 (4.5-11.0)
[2020-08-12] MEDS: docusate sod 100mg capsule PO SCH ×2 (08:02→21:07)
[2020-08-12] MEDS: carvedilol 6.25mg tablet PO SCH ×2 (08:02→21:08)
[2020-08-12] MEDS: furosemide 40mg/4ml inj IV SCH ×2 (08:02→20:00)
[2020-08-12 08:27] LABS: ALBUMIN 2.5 G/DL (3.4-5.0); ANION GAP 2 (8-16); BLOOD UREA NITROGEN 66 MG/DL (7-18); BUN/CREATININE RATIO 33.5 (6.6-38.0); CALCIUM 9.2 MG/DL (8.5-10.1); CHLORIDE 100 MMOL/L (99-107); CREATININE 1.97 MG/DL (0.40-0.90); GLUCOSE 118 MG/DL (70-104); POTASSIUM 4.2 MMOL/L (3.5-5.1); SODIUM 139 MMOL/L (135-145); TOTAL CARBON DIOXIDE 36.6 MMOL/L (24-32); eGFR 25 ML/MIN
[2020-08-12] MEDS: mineral oil/petrolatum, white cream 113gm jar TP SCH (09:00)
[2020-08-12] MEDS: insulin Lispro (HumaLOG) vial - multi-dose SQ SCH ×2 (09:28→13:35)
[2020-08-12 11:00] VITALS: BP 111/68
[2020-08-12] MEDS ORDERED: metolazone 2.5mg tablet PO ONE (13:15)
[2020-08-12 15:00] VITALS: BP 111/62
[2020-08-12 18:00] VITALS: BP 106/54
--- NOTE | 2020-08-12 18:39 | NUR ---
Report to Ashley ALVARADO
--- NOTE | 2020-08-12 18:41 | NUR ---
Patient in room PCU 3014. I have received report from Salena ALVARADO and had the opportunity to ask questions and assume patient care.
[2020-08-12] MEDS: atorvastatin 20mg tablet PO SCH (21:08)
[2020-08-12] MEDS: insulin glargine (Lantus) pen - multi-dose SQ SCH (21:39)
[2020-08-12 22:00] VITALS: BP 111/51
[2020-08-13 02:00] VITALS: BP 121/61
--- NOTE | 2020-08-13 02:08 | NUR ---
Reported that patient had a 12 beat run of v-tach. New orders to draw k and mag labs now.
[2020-08-13 02:26] LABS: MAGNESIUM 2.4 MG/DL (1.5-2.4)
--- NOTE | 2020-08-13 02:59 | NUR ---
Called MD to inform that K was 4.0 and mag 2.2. Awaiting phone call if any new orders.
--- NOTE | 2020-08-13 06:30 | NUR ---
Problems reprioritized. Patient report given, questions answered & plan of care reviewed with Eden ALVARADO.
--- NOTE | 2020-08-13 06:49 | NUR ---
Patient in room PCU 3014. I have received report from Ashley ALVARADO and had the opportunity to ask questions and assume patient care.
[2020-08-13 07:00] VITALS: BP 110/63
[2020-08-13] MEDS: K and/or MAG REPLACEMENT MC SCH ×2 (08:00→20:00)
[2020-08-13] MEDS: docusate sod 100mg capsule PO SCH ×2 (08:35→21:08)
[2020-08-13] MEDS: furosemide 40mg/4ml inj IV SCH ×2 (08:35→21:08)
[2020-08-13] MEDS: carvedilol 6.25mg tablet PO SCH ×2 (08:35→21:08)
[2020-08-13] MEDS: mineral oil/petrolatum, white cream 113gm jar TP SCH (08:36)
[2020-08-13] MEDS: metolazone 2.5mg tablet PO SCH (08:38)
[2020-08-13] MEDS: insulin Lispro (HumaLOG) vial - multi-dose SQ SCH ×3 (08:45→19:15)
[2020-08-13 09:47] LABS: BASOPHILS % (AUTO) 0.5 % (0-1); EOSINOPHILS # (AUTO) 0.1 X10'3 (0-0.9); EOSINOPHILS % (AUTO) 2.4 % (0-6); HEMATOCRIT 33.7 % (35.0-45.0); HEMOGLOBIN 10.5 g/dl (12.0-16.0); LYMPHOCYTES # (AUTO) 0.6 X10'3 (1.1-4.8); LYMPHOCYTES % (AUTO) 13.7 % (21-51); MEAN CORPUSCULAR HEMOGLOBIN 28.5 PG (27.0-31.0); MEAN CORPUSCULAR HGB CONC 31.1 g/dL (33.0-36.5); MEAN CORPUSCULAR VOLUME 91.6 FL (78-98); MEAN PLATELET VOLUME 8.1 FL (7.4-10.4); MONOCYTES # (AUTO) 0.5 X10'3 (0-0.9); MONOCYTES % (AUTO) 9.9 % (2-12); NEUTROPHILS # (AUTO) 3.4 X10'3 (1.8-7.7); NEUTROPHILS % (AUTO) 73.5 % (42-75); PLATELET COUNT 219 X10'3 (140-440); RED BLOOD COUNT 3.68 X10'6 (4.20-5.60); RED CELL DISTRIBUTION WIDTH 17.4 % (11.5-14.5); WHITE BLOOD COUNT 4.6 X10'3 (4.5-11.0)
[2020-08-13 10:02] LABS: ALANINE AMINOTRANSFERASE 24 U/L (12-78); ALBUMIN 2.3 G/DL (3.4-5.0); ALBUMIN/GLOBULIN RATIO 0.7 (1.1-1.5); ALKALINE PHOSPHATASE 130 IU/L (46-116); ANION GAP -2 (8-16); ASPARTATE AMINO TRANSFERASE 19 U/L (10-37); BILIRUBIN,TOTAL 0.5 MG/DL (0.1-1.0); BLOOD UREA NITROGEN 66 MG/DL (7-18); CALCIUM 8.9 MG/DL (8.5-10.1); CHLORIDE 98 MMOL/L (99-107); CREATININE 1.94 MG/DL (0.40-0.90); GLUCOSE 174 MG/DL (70-104); POTASSIUM 3.7 MMOL/L (3.5-5.1); SODIUM 138 MMOL/L (135-145); TOTAL PROTEIN 5.6 G/DL (6.4-8.2); eGFR 25 ML/MIN
[2020-08-13 10:05] LABS: TOTAL CARBON DIOXIDE 42.1 MMOL/L (24-32)
[2020-08-13 11:00] VITALS: BP 110/64
[2020-08-13 15:00] VITALS: BP 106/66
[2020-08-13 18:00] VITALS: BP 108/66
--- NOTE | 2020-08-13 18:10 | NUR ---
Problems reprioritized. Patient report given, questions answered & plan of care reviewed with Susie ALVARADO.
--- NOTE | 2020-08-13 18:15 | NUR ---
Patient in room PCU 3014. I have received report from Codi Soto and had the opportunity to ask questions and assume patient care.
[2020-08-13] MEDS: acetaZOLAMIDE 250mg tablet PO SCH (21:08)
[2020-08-13] MEDS: atorvastatin 20mg tablet PO SCH (21:08)
[2020-08-13] MEDS: insulin glargine (Lantus) pen - multi-dose SQ SCH (21:22)
[2020-08-13 22:00] VITALS: BP 129/71
[2020-08-14] VITALS (8 sets, daily range): BP systolic 107–121; BP diastolic 61–72
--- NOTE | 2020-08-14 06:15 | NUR ---
Problems reprioritized. Patient report given, questions answered & plan of care reviewed with MAURA calabrese.
--- NOTE | 2020-08-14 06:30 | NUR ---
Patient in room PCU 3014. I have received report from jeff calabrese and had the opportunity to ask questions and assume patient care.
[2020-08-14 07:37] LABS: BASOPHILS % (AUTO) 0.5 % (0-1); EOSINOPHILS # (AUTO) 0.2 X10'3 (0-0.9); HEMATOCRIT 33.3 % (35.0-45.0); HEMOGLOBIN 10.3 g/dl (12.0-16.0); LYMPHOCYTES # (AUTO) 0.9 X10'3 (1.1-4.8); LYMPHOCYTES % (AUTO) 15.9 % (21-51); MEAN CORPUSCULAR HEMOGLOBIN 28.7 PG (27.0-31.0); MEAN CORPUSCULAR HGB CONC 31.1 g/dL (33.0-36.5); MEAN CORPUSCULAR VOLUME 92.3 FL (78-98); MEAN PLATELET VOLUME 8.4 FL (7.4-10.4); MONOCYTES # (AUTO) 0.6 X10'3 (0-0.9); NEUTROPHILS # (AUTO) 3.7 X10'3 (1.8-7.7); NEUTROPHILS % (AUTO) 69.6 % (42-75); PLATELET COUNT 233 X10'3 (140-440); RED BLOOD COUNT 3.61 X10'6 (4.20-5.60); RED CELL DISTRIBUTION WIDTH 17.3 % (11.5-14.5); WHITE BLOOD COUNT 5.3 X10'3 (4.5-11.0)
[2020-08-14] MEDS: docusate sod 100mg capsule PO SCH ×2 (07:37→20:20)
[2020-08-14] MEDS: furosemide 40mg/4ml inj IV SCH ×2 (07:37→20:19)
[2020-08-14] MEDS: acetaZOLAMIDE 250mg tablet PO SCH ×2 (07:37→20:19)
[2020-08-14] MEDS: carvedilol 6.25mg tablet PO SCH ×2 (07:37→20:19)
[2020-08-14] MEDS: mineral oil/petrolatum, white cream 113gm jar TP SCH (07:38)
[2020-08-14] MEDS: metolazone 2.5mg tablet PO SCH (07:38)
[2020-08-14 07:55] LABS: ALANINE AMINOTRANSFERASE 25 U/L (12-78); ALBUMIN 2.3 G/DL (3.4-5.0); ALBUMIN/GLOBULIN RATIO 0.7 (1.1-1.5); ALKALINE PHOSPHATASE 128 IU/L (46-116); ANION GAP 1 (8-16); ASPARTATE AMINO TRANSFERASE 16 U/L (10-37); BILIRUBIN,TOTAL 0.4 MG/DL (0.1-1.0); BLOOD UREA NITROGEN 70 MG/DL (7-18); BUN/CREATININE RATIO 36.6 (6.6-38.0); CALCIUM 9.1 MG/DL (8.5-10.1); CHLORIDE 98 MMOL/L (99-107); CREATININE 1.91 MG/DL (0.40-0.90); GLUCOSE 111 MG/DL (70-104); POTASSIUM 3.2 MMOL/L (3.5-5.1); SODIUM 139 MMOL/L (135-145); TOTAL PROTEIN 5.5 G/DL (6.4-8.2); eGFR 26 ML/MIN
[2020-08-14] MEDS: K and/or MAG REPLACEMENT MC SCH ×3 (08:00→20:00)
[2020-08-14 08:03] LABS: TOTAL CARBON DIOXIDE 40.4 MMOL/L (24-32)
--- NOTE | 2020-08-14 08:06 | NUR ---
CRITICAL CO2 40.4 [id number], DR GARRETT AWAITING CALL BACK
[2020-08-14] MEDS: insulin Lispro (HumaLOG) vial - multi-dose SQ SCH ×2 (09:48→18:53)
[2020-08-14] MEDS ORDERED: magnesium 4gm in 100ml NS 100 ML IV PRN (16:15)
[2020-08-14] MEDS ORDERED: magnesium Cl slow-release 64mg tablet PO PRN (16:15)
[2020-08-14] MEDS ORDERED: potassium Cl 40MEQ/1/2NS 520ml 520 ML IV PRN (16:15)
[2020-08-14] MEDS ORDERED: potassium Cl 20 mEq SR tablet PO PRN (16:15)
[2020-08-14] MEDS: potassium Cl 20 mEq SR tablet PO PRN (16:17)
--- NOTE | 2020-08-14 18:29 | NUR ---
Patient in room PCU 3014. I have received report from CHRISTIANO Mc and had the opportunity to ask questions and assume patient care.
--- NOTE | 2020-08-14 18:32 | NUR ---
Problems reprioritized. Patient report given, questions answered & plan of care reviewed with OCTAVIO ALVARADO.
[2020-08-14 19:35] LABS: ABG BASE EXCESS 13.9 mmol/L (-2.0-2.0); ABG HCO3 43.5 mmol/L (22.0-26.0); ABG OXYGEN SATURATION 96.1 % (94-97); ABG PCO2 (T) 88.3 mmHg (32.0-45.0); ALLEN'S TEST POSITIVE; FCOHb 0.7 % (0.0-3.9); FMetHb 0.1 % (0.0-1.5); FO2Hb 95.3 % (94-97); PATIENT TEMPERATURE 36.7; TOTAL HEMOGLOBIN 11.3 G/dl (12.0-16.0)
[2020-08-14] MEDS: atorvastatin 20mg tablet PO SCH (20:19)
[2020-08-14] MEDS: insulin glargine (Lantus) pen - multi-dose SQ SCH (21:22)
[2020-08-15 02:00] VITALS: BP 116/65
[2020-08-15] MEDS: potassium Cl 20 mEq SR tablet PO PRN ×4 (04:15→18:34)
--- NOTE | 2020-08-15 06:19 | NUR ---
Problems reprioritized. Patient report given, questions answered & plan of care reviewed with CHRISTIANO Pinon.
--- NOTE | 2020-08-15 06:30 | NUR ---
Patient in room PCU 3014. I have received report from CHRISTIANO Hercules and had the opportunity to ask questions and assume patient care.
[2020-08-15 06:51] VITALS: BP 107/53
[2020-08-15] MEDS: K and/or MAG REPLACEMENT MC SCH ×3 (07:14→20:00)
[2020-08-15] MEDS: docusate sod 100mg capsule PO SCH ×2 (07:24→20:27)
[2020-08-15] MEDS: furosemide 40mg/4ml inj IV SCH ×2 (07:24→20:28)
[2020-08-15] MEDS: carvedilol 6.25mg tablet PO SCH ×2 (07:24→20:27)
[2020-08-15] MEDS: acetaZOLAMIDE 250mg tablet PO SCH ×2 (07:25→20:27)
[2020-08-15] MEDS: metolazone 2.5mg tablet PO SCH (07:27)
[2020-08-15] MEDS: mineral oil/petrolatum, white cream 113gm jar TP SCH (07:35)
[2020-08-15 07:55] LABS: BASOPHILS % (AUTO) 0.4 % (0-1); EOSINOPHILS # (AUTO) 0.2 X10'3 (0-0.9); HEMATOCRIT 32.8 % (35.0-45.0); HEMOGLOBIN 10.3 g/dl (12.0-16.0); LYMPHOCYTES # (AUTO) 0.8 X10'3 (1.1-4.8); LYMPHOCYTES % (AUTO) 13.9 % (21-51); MEAN CORPUSCULAR HEMOGLOBIN 28.8 PG (27.0-31.0); MEAN CORPUSCULAR HGB CONC 31.3 g/dL (33.0-36.5); MEAN CORPUSCULAR VOLUME 91.9 FL (78-98); MEAN PLATELET VOLUME 8.4 FL (7.4-10.4); MONOCYTES # (AUTO) 0.6 X10'3 (0-0.9); MONOCYTES % (AUTO) 10.4 % (2-12); NEUTROPHILS # (AUTO) 4.3 X10'3 (1.8-7.7); NEUTROPHILS % (AUTO) 72.3 % (42-75); PLATELET COUNT 232 X10'3 (140-440); RED BLOOD COUNT 3.57 X10'6 (4.20-5.60); RED CELL DISTRIBUTION WIDTH 17.9 % (11.5-14.5)
[2020-08-15 08:30] LABS: ALANINE AMINOTRANSFERASE 26 U/L (12-78); ALBUMIN 2.3 G/DL (3.4-5.0); ALBUMIN/GLOBULIN RATIO 0.7 (1.1-1.5); ALKALINE PHOSPHATASE 134 IU/L (46-116); ANION GAP 2 (8-16); ASPARTATE AMINO TRANSFERASE 19 U/L (10-37); BILIRUBIN,TOTAL 0.5 MG/DL (0.1-1.0); BLOOD UREA NITROGEN 77 MG/DL (7-18); BUN/CREATININE RATIO 36.2 (6.6-38.0); CHLORIDE 97 MMOL/L (99-107); CREATININE 2.13 MG/DL (0.40-0.90); GLUCOSE 105 MG/DL (70-104); POTASSIUM 3.1 MMOL/L (3.5-5.1); SODIUM 141 MMOL/L (135-145); TOTAL PROTEIN 5.6 G/DL (6.4-8.2); eGFR 23 ML/MIN
[2020-08-15] MEDS: insulin Lispro (HumaLOG) vial - multi-dose SQ SCH ×4 (08:32→21:01)
[2020-08-15 08:35] LABS: TOTAL CARBON DIOXIDE 41.7 MMOL/L (24-32)
[2020-08-15 09:20] LABS: ABG BASE EXCESS 14.6 mmol/L (-2.0-2.0); ABG HCO3 44.2 mmol/L (22.0-26.0); ABG OXYGEN SATURATION 97.1 % (94-97); ABG PCO2 (T) 89.9 mmHg (32.0-45.0); ABG PO2 (T) 95.3 mmHg (75.0-100.0); ALLEN'S TEST POSITIVE; FCOHb 0.8 % (0.0-3.9); FLOW 2 L/min; FMetHb 0.1 % (0.0-1.5); FO2Hb 96.2 % (94-97); TOTAL HEMOGLOBIN 11.2 G/dl (12.0-16.0)
[2020-08-15] MEDS: methylPREDNISolone sod succ 125mg/2ml vial IV SCH ×3 (09:55→20:25)
[2020-08-15 11:18] VITALS: BP 133/64
[2020-08-15 12:15] LABS: ABG BASE EXCESS 17.6 mmol/L (-2.0-2.0); ABG HCO3 45.5 mmol/L (22.0-26.0); ABG OXYGEN SATURATION 93.2 % (94-97); ABG PCO2 (T) 73.8 mmHg (32.0-45.0); ABG PO2 (T) 62.2 mmHg (75.0-100.0); ALLEN'S TEST POSITIVE; FCOHb 0.8 % (0.0-3.9); FMetHb 0.1 % (0.0-1.5); FO2Hb 92.4 % (94-97); RESPIRATORY RATE 20 b/min; TOTAL HEMOGLOBIN 11.3 G/dl (12.0-16.0)
[2020-08-15 15:45] VITALS: BP 126/73
[2020-08-15] MEDS: ipratropium/albuterol 3ml nebule NEB SCH ×2 (16:54→20:02)
[2020-08-15 18:00] VITALS: BP 131/64
--- NOTE | 2020-08-15 18:32 | NUR ---
Problems reprioritized. Patient report given, questions answered & plan of care reviewed with CHRISTIANO Stapleton.
--- NOTE | 2020-08-15 18:40 | NUR ---
Patient in room PCU 3014. I have received report from Kathrin ALVARADO and had the opportunity to ask questions and assume patient care.
[2020-08-15] MEDS: atorvastatin 20mg tablet PO SCH (20:27)
[2020-08-15] MEDS: insulin glargine (Lantus) pen - multi-dose SQ SCH (21:01)
[2020-08-15 22:00] VITALS: BP 106/65
[2020-08-16 02:00] VITALS: BP 108/58
[2020-08-16 06:00] VITALS: BP 108/56
--- NOTE | 2020-08-16 06:45 | NUR ---
Patient in room PCU 3014. I have received report from Daya ALVARADO and had the opportunity to ask questions and assume patient care.
--- NOTE | 2020-08-16 06:47 | NUR ---
Problems reprioritized. Patient report given, questions answered & plan of care reviewed with Ashley ALVARADO.
[2020-08-16] MEDS: ipratropium/albuterol 3ml nebule NEB SCH ×3 (07:41→19:35)
[2020-08-16] MEDS: K and/or MAG REPLACEMENT MC SCH ×2 (08:00→20:00)
[2020-08-16 08:11] LABS: BASOPHILS % (AUTO) 0.2 % (0-1); EOSINOPHILS % (AUTO) 0 % (0-6); HEMATOCRIT 31.4 % (35.0-45.0); HEMOGLOBIN 10.2 g/dl (12.0-16.0); LYMPHOCYTES # (AUTO) 0.6 X10'3 (1.1-4.8); LYMPHOCYTES % (AUTO) 13.4 % (21-51); MEAN CORPUSCULAR HEMOGLOBIN 29.6 PG (27.0-31.0); MEAN CORPUSCULAR HGB CONC 32.6 g/dL (33.0-36.5); MEAN CORPUSCULAR VOLUME 90.8 FL (78-98); MEAN PLATELET VOLUME 8.6 FL (7.4-10.4); MONOCYTES # (AUTO) 0.2 X10'3 (0-0.9); MONOCYTES % (AUTO) 3.8 % (2-12); NEUTROPHILS # (AUTO) 3.5 X10'3 (1.8-7.7); NEUTROPHILS % (AUTO) 82.6 % (42-75); PLATELET COUNT 242 X10'3 (140-440); RED BLOOD COUNT 3.46 X10'6 (4.20-5.60); RED CELL DISTRIBUTION WIDTH 17.3 % (11.5-14.5); WHITE BLOOD COUNT 4.3 X10'3 (4.5-11.0)
[2020-08-16 08:38] LABS: ALANINE AMINOTRANSFERASE 27 U/L (12-78); ALBUMIN 2.2 G/DL (3.4-5.0); ALBUMIN/GLOBULIN RATIO 0.7 (1.1-1.5); ALKALINE PHOSPHATASE 129 IU/L (46-116); ANION GAP 1 (8-16); ASPARTATE AMINO TRANSFERASE 21 U/L (10-37); BILIRUBIN,TOTAL 0.5 MG/DL (0.1-1.0); BLOOD UREA NITROGEN 81 MG/DL (7-18); BUN/CREATININE RATIO 36.8 (6.6-38.0); CALCIUM 8.7 MG/DL (8.5-10.1); CHLORIDE 97 MMOL/L (99-107); GLUCOSE 171 MG/DL (70-104); POTASSIUM 3.3 MMOL/L (3.5-5.1); SODIUM 139 MMOL/L (135-145); TOTAL PROTEIN 5.4 G/DL (6.4-8.2); eGFR 22 ML/MIN
[2020-08-16] MEDS: acetaZOLAMIDE 250mg tablet PO SCH ×2 (08:52→20:26)
[2020-08-16] MEDS: metolazone 2.5mg tablet PO SCH (08:56)
[2020-08-16] MEDS: docusate sod 100mg capsule PO SCH ×2 (08:56→20:26)
[2020-08-16] MEDS: carvedilol 6.25mg tablet PO SCH ×2 (08:56→20:25)
[2020-08-16] MEDS: methylPREDNISolone sod succ 125mg/2ml vial IV SCH ×3 (08:57→20:24)
[2020-08-16] MEDS: furosemide 40mg/4ml inj IV SCH ×2 (08:57→20:27)
[2020-08-16] MEDS: mineral oil/petrolatum, white cream 113gm jar TP SCH (09:01)
[2020-08-16] MEDS: insulin Lispro (HumaLOG) vial - multi-dose SQ SCH ×3 (09:11→18:56)
--- NOTE | 2020-08-16 09:16 | NUR ---
PAGER ID: [phone] MESSAGE: re: [id number], Ebonie Watkins notified at 0910 critical value, pt's CO2 41.0. was on 2L o2 NC, BIPAP placed on. Also, id you want her on anticoags? Ebonie [facility] [phone] Addendum: 08/16/20 at 0931 by Ashley Dias RN spoke with Dr Dian Dr. ordering ABG, funeral home general manager aware.
--- NOTE | 2020-08-16 09:30 | NUR ---
PAGER ID: [phone] MESSAGE: re: [id number], Ebonie Watkins notified at 0910 critical value, pt's CO2 41.0. was on 2L o2 NC, BIPAP placed on. Also, id you want her on anticoags? Ebonie PCU [phone]
[2020-08-16 10:51] LABS: ABG BASE EXCESS 17.6 mmol/L (-2.0-2.0); ABG HCO3 43.2 mmol/L (22.0-26.0); ABG OXYGEN SATURATION 90.6 % (94-97); ABG PCO2 (T) 56.1 mmHg (32.0-45.0); ABG PO2 (T) 55.8 mmHg (75.0-100.0); ALLEN'S TEST POSITIVE; FCOHb 0.7 % (0.0-3.9); RESPIRATORY RATE 20 b/min; TOTAL HEMOGLOBIN 11.2 G/dl (12.0-16.0)
[2020-08-16 11:00] VITALS: BP 119/60
--- NOTE | 2020-08-16 11:36 | NUR ---
PAGER ID: [phone] MESSAGE: re: [id number], Ebonie Watkins resulted - Making sure you are aware. Orders? Thank you, Ebonie GRANT [phone] evs manager aware, will continue to monitor pt.
[2020-08-16] MEDS: potassium Cl 20 mEq SR tablet PO PRN ×3 (12:25→21:33)
[2020-08-16 14:42] LABS: CHLORIDE,URINE RANDOM 102 MEQ/L
[2020-08-16 15:00] VITALS: BP 118/68
[2020-08-16 18:00] VITALS: BP 124/62
--- NOTE | 2020-08-16 18:30 | NUR ---
Patient in room PCU 3014. I have received report from Ebonie ALVARADO and had the opportunity to ask questions and assume patient care.
--- NOTE | 2020-08-16 18:34 | NUR ---
Problems reprioritized. Patient report given, questions answered & plan of care reviewed with Daya ALVARADO.
[2020-08-16] MEDS: apixaban 2.5mg tablet PO SCH (20:26)
[2020-08-16] MEDS: atorvastatin 20mg tablet PO SCH (20:26)
[2020-08-16] MEDS: insulin glargine (Lantus) pen - multi-dose SQ SCH (21:38)
[2020-08-16 22:00] VITALS: BP 108/58
[2020-08-17 02:00] VITALS: BP 107/63
--- NOTE | 2020-08-17 04:20 | NUR ---
7 beat run of V-tach. called and mag order added for am draws.
--- NOTE | 2020-08-17 06:16 | NUR ---
Patient in room PCU 3014. I have received report from NOC shift RN and had the opportunity to ask questions and assume patient care.
--- NOTE | 2020-08-17 06:39 | NUR ---
Problems reprioritized. Patient report given, questions answered & plan of care reviewed with Constance ALVARADO.
[2020-08-17] MEDS: ipratropium/albuterol 3ml nebule NEB SCH ×3 (07:11→20:07)
[2020-08-17 07:33] VITALS: BP 113/60
[2020-08-17 07:50] LABS: EOSINOPHILS % (AUTO) 0 % (0-6); HEMOGLOBIN 10.5 g/dl (12.0-16.0); LYMPHOCYTES # (AUTO) 0.6 X10'3 (1.1-4.8); MONOCYTES # (AUTO) 0.3 X10'3 (0-0.9)
[2020-08-17 07:53] LABS: BASOPHILS % (AUTO) 0.1 % (0-1); HEMATOCRIT 32.1 % (35.0-45.0); LYMPHOCYTES % (AUTO) 8.6 % (21-51); MEAN CORPUSCULAR HEMOGLOBIN 29.8 PG (27.0-31.0); MEAN CORPUSCULAR HGB CONC 32.7 g/dL (33.0-36.5); MEAN CORPUSCULAR VOLUME 91.4 FL (78-98); MEAN PLATELET VOLUME 9.1 FL (7.4-10.4); MONOCYTES % (AUTO) 4.5 % (2-12); NEUTROPHILS # (AUTO) 5.6 X10'3 (1.8-7.7); NEUTROPHILS % (AUTO) 86.8 % (42-75); PLATELET COUNT 238 X10'3 (140-440); RED BLOOD COUNT 3.52 X10'6 (4.20-5.60); RED CELL DISTRIBUTION WIDTH 17.6 % (11.5-14.5); WHITE BLOOD COUNT 6.4 X10'3 (4.5-11.0)
[2020-08-17] MEDS: metolazone 2.5mg tablet PO SCH (08:28)
[2020-08-17] MEDS: docusate sod 100mg capsule PO SCH ×2 (08:28→20:16)
[2020-08-17] MEDS: acetaZOLAMIDE 250mg tablet PO SCH ×2 (08:28→20:16)
[2020-08-17] MEDS: aspirin 81mg tablet.DR PO SCH (08:28)
[2020-08-17] MEDS: apixaban 2.5mg tablet PO SCH ×2 (08:28→20:16)
[2020-08-17] MEDS: furosemide 40mg/4ml inj IV SCH ×2 (08:29→20:15)
[2020-08-17] MEDS: methylPREDNISolone sod succ 125mg/2ml vial IV SCH ×3 (08:29→20:15)
[2020-08-17] MEDS: carvedilol 6.25mg tablet PO SCH ×2 (08:29→20:16)
[2020-08-17 08:34] LABS: ALANINE AMINOTRANSFERASE 24 U/L (12-78); ALBUMIN 2.2 G/DL (3.4-5.0); ALBUMIN/GLOBULIN RATIO 0.7 (1.1-1.5); ALKALINE PHOSPHATASE 122 IU/L (46-116); ANION GAP 3 (8-16); ASPARTATE AMINO TRANSFERASE 22 U/L (10-37); BILIRUBIN,TOTAL 0.4 MG/DL (0.1-1.0); BLOOD UREA NITROGEN 91 MG/DL (7-18); BUN/CREATININE RATIO 41.4 (6.6-38.0); CALCIUM 8.8 MG/DL (8.5-10.1); CHLORIDE 96 MMOL/L (99-107); GLUCOSE 135 MG/DL (70-104); MAGNESIUM 2.4 MG/DL (1.5-2.4); POTASSIUM 3.7 MMOL/L (3.5-5.1); SODIUM 140 MMOL/L (135-145); TOTAL PROTEIN 5.3 G/DL (6.4-8.2); eGFR 22 ML/MIN
[2020-08-17 08:35] LABS: ELLIPTOCYTES FEW; LARGE PLATELETS FEW; PLATELET ESTIMATE NORMAL
[2020-08-17 08:36] LABS: HYPOCHROMASIA 1+
[2020-08-17 08:37] LABS: SCHISTOCYTES FEW
[2020-08-17 08:38] LABS: TOTAL CARBON DIOXIDE 40.9 MMOL/L (24-32)
[2020-08-17] MEDS: insulin Lispro (HumaLOG) vial - multi-dose SQ SCH ×3 (08:41→18:55)
[2020-08-17] MEDS: mineral oil/petrolatum, white cream 113gm jar TP SCH (08:43)
[2020-08-17] MEDS: K and/or MAG REPLACEMENT MC SCH ×2 (08:45→20:00)
--- NOTE | 2020-08-17 10:22 | NUR ---
Phone call to the family made by myself, Constance ALVARADO. Spoke with Dudley, patients daughter via phone. Request was made to have patient MD call the family. Family numbers will be given to MD today. Patients daughter was updated on patients current situation.
[2020-08-17 10:36] LABS: ABG BASE EXCESS 19.6 mmol/L (-2.0-2.0); ABG HCO3 47.5 mmol/L (22.0-26.0); ABG PCO2 (T) 73.6 mmHg (32.0-45.0); ABG PO2 (T) 80.6 mmHg (75.0-100.0); ALLEN'S TEST POSITIVE; FCOHb 0.5 % (0.0-3.9); FLOW 2 L/min; FMetHb 0.1 % (0.0-1.5); FO2Hb 95.4 % (94-97); TOTAL HEMOGLOBIN 11.7 G/dl (12.0-16.0)
--- NOTE | 2020-08-17 10:49 | NUR ---
Critical result for pCO2 ABG at 1031 73.6, documented as contacting Constance ALVARADO with this result. I was NOT informed or called with this result. I will notify
[2020-08-17 11:00] VITALS: BP 117/63
[2020-08-17 15:00] VITALS: BP 120/55
--- NOTE | 2020-08-17 15:13 | NUR ---
Reassessment: Pt PO 75-100% avg meals w/ double proteins BIDLD meeting needs, chopped meats. Last BM 08/16, small. No nutrition concerns at this time. Will continue to monitor. Recommendations: 1) Continue CHO controlled diet, chopped meats 2) Double protein BIDLD 3) bowel care per rx 4) Scaled weights per rx Addendum: 08/17/20 at [address] Amended: Links added.
[2020-08-17] MEDS: magnesium hydroxide 30ml (MOM) UD suspension PO PRN (17:16)
[2020-08-17 18:00] VITALS: BP 126/71
--- NOTE | 2020-08-17 18:17 | NUR ---
Problems reprioritized. Patient report given, questions answered & plan of care reviewed with Karen Londono RN.
--- NOTE | 2020-08-17 18:30 | NUR ---
Patient in room PCU 3014. I have received report from CHRISTIANO Nolasco and had the opportunity to ask questions and assume patient care.
[2020-08-17] MEDS: atorvastatin 20mg tablet PO SCH (20:15)
[2020-08-17] MEDS: insulin glargine (Lantus) pen - multi-dose SQ SCH (21:17)
[2020-08-17 22:00] VITALS: BP 151/61
[2020-08-18] VITALS (7 sets, daily range): BP systolic 108–133; BP diastolic 58–70
--- NOTE | 2020-08-18 05:46 | NUR ---
[id number] MESSAGE: [id number] Ebonie Wheelermeli DX: COPD and CHF exac. Pt had an 11 beat run of v-tach followed by a 9 beat run. This has occurred previously with this patient a few days ago, and again a week ago. CHRISTIANO Jones PCU 0634
[2020-08-18] MEDS: magnesium hydroxide 30ml (MOM) UD suspension PO PRN (06:00)
--- NOTE | 2020-08-18 06:00 | NUR ---
Patient in room PCU 3014. I have received report from CHRISTIANO Jones and had the opportunity to ask questions and assume patient care.
--- NOTE | 2020-08-18 06:29 | NUR ---
Problems reprioritized. Patient report given, questions answered & plan of care reviewed with CHRISTIANO Man.
[2020-08-18] MEDS: ipratropium/albuterol 3ml nebule NEB SCH ×3 (07:14→19:51)
[2020-08-18] MEDS: aspirin 81mg tablet.DR PO SCH (07:32)
[2020-08-18] MEDS: furosemide 40mg/4ml inj IV SCH ×2 (07:32→19:58)
[2020-08-18] MEDS: metolazone 2.5mg tablet PO SCH (07:33)
[2020-08-18] MEDS: apixaban 2.5mg tablet PO SCH ×2 (07:33→20:00)
[2020-08-18] MEDS: acetaZOLAMIDE 250mg tablet PO SCH ×2 (07:33→20:00)
[2020-08-18] MEDS: carvedilol 6.25mg tablet PO SCH ×2 (07:33→19:59)
[2020-08-18] MEDS: docusate sod 100mg capsule PO SCH ×2 (07:34→19:58)
[2020-08-18] MEDS: mineral oil/petrolatum, white cream 113gm jar TP SCH (07:35)
[2020-08-18] MEDS: methylPREDNISolone sod succ 125mg/2ml vial IV SCH ×2 (07:35→19:58)
[2020-08-18 08:00] LABS: BASOPHILS % (AUTO) 0.2 % (0-1); EOSINOPHILS % (AUTO) 0 % (0-6); HEMATOCRIT 34.4 % (35.0-45.0); HEMOGLOBIN 11.1 g/dl (12.0-16.0); LYMPHOCYTES # (AUTO) 0.5 X10'3 (1.1-4.8); LYMPHOCYTES % (AUTO) 6.7 % (21-51); MEAN CORPUSCULAR HEMOGLOBIN 29.6 PG (27.0-31.0); MEAN CORPUSCULAR HGB CONC 32.4 g/dL (33.0-36.5); MEAN CORPUSCULAR VOLUME 91.3 FL (78-98); MEAN PLATELET VOLUME 8.9 FL (7.4-10.4); MONOCYTES # (AUTO) 0.4 X10'3 (0-0.9); MONOCYTES % (AUTO) 4.8 % (2-12); NEUTROPHILS # (AUTO) 6.7 X10'3 (1.8-7.7); NEUTROPHILS % (AUTO) 88.3 % (42-75); PLATELET COUNT 243 X10'3 (140-440); RED BLOOD COUNT 3.77 X10'6 (4.20-5.60); RED CELL DISTRIBUTION WIDTH 17.6 % (11.5-14.5); WHITE BLOOD COUNT 7.6 X10'3 (4.5-11.0)
[2020-08-18] MEDS: K and/or MAG REPLACEMENT MC SCH ×2 (08:00→19:50)
[2020-08-18 08:11] LABS: ALANINE AMINOTRANSFERASE 41 U/L (12-78); ALBUMIN 2.4 G/DL (3.4-5.0); ALBUMIN/GLOBULIN RATIO 0.7 (1.1-1.5); ALKALINE PHOSPHATASE 133 IU/L (46-116); ANION GAP 2 (8-16); ASPARTATE AMINO TRANSFERASE 35 U/L (10-37); BILIRUBIN,TOTAL 0.4 MG/DL (0.1-1.0); BLOOD UREA NITROGEN 99 MG/DL (7-18); BUN/CREATININE RATIO 46.7 (6.6-38.0); CALCIUM 9.2 MG/DL (8.5-10.1); CHLORIDE 95 MMOL/L (99-107); CREATININE 2.12 MG/DL (0.40-0.90); GLUCOSE 131 MG/DL (70-104); POTASSIUM 3.2 MMOL/L (3.5-5.1); SODIUM 139 MMOL/L (135-145); TOTAL PROTEIN 5.7 G/DL (6.4-8.2); eGFR 23 ML/MIN
[2020-08-18 08:14] LABS: TOTAL CARBON DIOXIDE 42.4 MMOL/L (24-32)
--- NOTE | 2020-08-18 08:17 | NUR ---
Md stephens paged; [phone], Lynne Watkins. Patient has a critical CO2 of 42.4. Donovan, U, [phone]
[2020-08-18] MEDS: insulin Lispro (HumaLOG) vial - multi-dose SQ SCH ×3 (08:29→19:55)
[2020-08-18 11:45] LABS: ABG BASE EXCESS 21.3 mmol/L (-2.0-2.0); ABG HCO3 48.3 mmol/L (22.0-26.0); ABG OXYGEN SATURATION 88.1 % (94-97); ABG PCO2 (T) 66.2 mmHg (32.0-45.0); ABG PO2 (T) 52.7 mmHg (75.0-100.0); ALLEN'S TEST POSITIVE; FCOHb 0.8 % (0.0-3.9); FMetHb 0.1 % (0.0-1.5); FO2Hb 87.3 % (94-97); TOTAL HEMOGLOBIN 11.8 G/dl (12.0-16.0)
[2020-08-18] MEDS ORDERED: potassium Cl 20 mEq SR tablet PO PRN (15:05)
[2020-08-18] MEDS ORDERED: magnesium 4gm in 100ml NS 100 ML IV PRN (15:05)
[2020-08-18] MEDS ORDERED: magnesium Cl slow-release 64mg tablet PO PRN (15:05)
[2020-08-18] MEDS ORDERED: potassium Cl 40MEQ/1/2NS 520ml 520 ML IV PRN (15:05)
[2020-08-18] MEDS: potassium Cl 20 mEq SR tablet PO PRN ×2 (16:08→21:40)
--- NOTE | 2020-08-18 18:55 | NUR ---
I have received report from Donovan ALVARADO and had the opportunity to ask questions and assume patient care.
--- NOTE | 2020-08-18 18:55 | NUR ---
Problems reprioritized. Patient report given, questions answered & plan of care reviewed with CHRISTIANO Tolbert.
[2020-08-18] MEDS: insulin glargine (Lantus) pen - multi-dose SQ SCH (21:38)
[2020-08-18] MEDS: atorvastatin 20mg tablet PO SCH (21:40)
[2020-08-19 02:00] VITALS: BP 124/70
--- NOTE | 2020-08-19 06:40 | NUR ---
Problems reprioritized. Patient report given, questions answered & plan of care reviewed with Nell ALVARADO.
[2020-08-19 07:04] VITALS: BP 124/70
[2020-08-19] MEDS: K and/or MAG REPLACEMENT MC SCH ×2 (08:00→20:00)
[2020-08-19] MEDS: ipratropium/albuterol 3ml nebule NEB SCH ×3 (08:10→21:16)
[2020-08-19] MEDS ORDERED: prednisone 10mg tablet PO SCH (08:30)
[2020-08-19] MEDS: insulin Lispro (HumaLOG) vial - multi-dose SQ SCH ×3 (08:33→19:06)
[2020-08-19] MEDS: furosemide 40mg/4ml inj IV SCH ×2 (08:36→20:21)
[2020-08-19] MEDS: apixaban 2.5mg tablet PO SCH ×2 (08:38→20:20)
[2020-08-19] MEDS: carvedilol 6.25mg tablet PO SCH ×2 (08:39→20:20)
[2020-08-19] MEDS: aspirin 81mg tablet.DR PO SCH (08:39)
[2020-08-19] MEDS: acetaZOLAMIDE 250mg tablet PO SCH ×2 (08:39→20:20)
[2020-08-19] MEDS: docusate sod 100mg capsule PO SCH ×2 (08:39→20:20)
[2020-08-19 10:05] LABS: HEMOGLOBIN 10.7 g/dl (12.0-16.0); RED CELL DISTRIBUTION WIDTH 17.6 % (11.5-14.5)
[2020-08-19 10:07] LABS: BASOPHILS % (AUTO) 0.1 % (0-1); EOSINOPHILS % (AUTO) 0 % (0-6); HEMATOCRIT 34.8 % (35.0-45.0); LYMPHOCYTES # (AUTO) 0.4 X10'3 (1.1-4.8); MEAN CORPUSCULAR HEMOGLOBIN 28.6 PG (27.0-31.0); MEAN CORPUSCULAR HGB CONC 30.9 g/dL (33.0-36.5); MEAN CORPUSCULAR VOLUME 92.8 FL (78-98); MEAN PLATELET VOLUME 8.9 FL (7.4-10.4); MONOCYTES # (AUTO) 0.5 X10'3 (0-0.9); MONOCYTES % (AUTO) 7.2 % (2-12); NEUTROPHILS % (AUTO) 86.7 % (42-75); PLATELET COUNT 233 X10'3 (140-440); RED BLOOD COUNT 3.75 X10'6 (4.20-5.60); WHITE BLOOD COUNT 6.9 X10'3 (4.5-11.0)
[2020-08-19 10:15] LABS: ALANINE AMINOTRANSFERASE 42 U/L (12-78); ALBUMIN 2.3 G/DL (3.4-5.0); ALBUMIN/GLOBULIN RATIO 0.7 (1.1-1.5); ALKALINE PHOSPHATASE 126 IU/L (46-116); ANION GAP 2 (8-16); ASPARTATE AMINO TRANSFERASE 30 U/L (10-37); BILIRUBIN,TOTAL 0.4 MG/DL (0.1-1.0); BLOOD UREA NITROGEN 106 MG/DL (7-18); BUN/CREATININE RATIO 42.1 (6.6-38.0); CALCIUM 8.7 MG/DL (8.5-10.1); CHLORIDE 95 MMOL/L (99-107); CREATININE 2.52 MG/DL (0.40-0.90); GLUCOSE 182 MG/DL (70-104); POTASSIUM 3.8 MMOL/L (3.5-5.1); SODIUM 142 MMOL/L (135-145); TOTAL PROTEIN 5.4 G/DL (6.4-8.2); eGFR 19 ML/MIN
[2020-08-19 10:19] LABS: TOTAL CARBON DIOXIDE 44.8 MMOL/L (24-32)
--- NOTE | 2020-08-19 10:30 | NUR ---
PAGER ID: [phone] MESSAGE: Jamshid [id number] Re: June [id number] Patients blood CO2 is 44.8 please call
--- NOTE | 2020-08-19 10:32 | NUR ---
CRITICAL LAB VALUE RECEIVED FROM LAB, REPORTED TO PRIMARY RN.
[2020-08-19 11:00] VITALS: BP 122/65
[2020-08-19] MEDS: metolazone 2.5mg tablet PO SCH (11:43)
[2020-08-19] MEDS: mineral oil/petrolatum, white cream 113gm jar TP SCH (11:43)
[2020-08-19 16:05] VITALS: BP 113/64
--- NOTE | 2020-08-19 17:00 | NUR ---
phoned PCU for report, RN is busy, mssg will be given to her to phone back.
--- NOTE | 2020-08-19 17:30 | NUR ---
Call to PCU for report, RN continues to be busy, still unable to take call at this time.
[2020-08-19 18:00] VITALS: BP 109/56
--- NOTE | 2020-08-19 18:30 | NUR ---
Patient report given to Liliane ALVARADO who will be transferring patient to surgical floor room 194G
--- NOTE | 2020-08-19 18:53 | NUR ---
Patient in room ANANDA 349. I have received report from CHRISTIANO Camejo and had the opportunity to ask questions and assume patient care.
--- NOTE | 2020-08-19 19:00 | NUR ---
Problems reprioritized. Patient report given, questions answered & plan of care reviewed with Tali Huff RN and is aware earth science faculty member RN Liliane will be bringing patient to the floor.
--- NOTE | 2020-08-19 19:24 | NUR ---
Pt arrived from tele
--- NOTE | 2020-08-19 19:31 | NUR ---
Patient transfer to [facility] from tele room 3949n. All belongings sent with patient.
--- NOTE | 2020-08-19 19:34 | NUR ---
Dr. Ragsdale in to see patient
[2020-08-19] MEDS: atorvastatin 20mg tablet PO SCH (20:20)
[2020-08-19] MEDS: insulin glargine (Lantus) pen - multi-dose SQ SCH (20:31)
[2020-08-20] VITALS: BP 114/54
--- NOTE | 2020-08-20 06:03 | NUR ---
Problems reprioritized. Patient report given, questions answered & plan of care reviewed with CHRISTIANO Lopez.
--- NOTE | 2020-08-20 06:14 | NUR ---
Patient in room ANANDA 349. I have received report from Daria Jones and had the opportunity to ask questions and assume patient care.
[2020-08-20 07:15] LABS: BASOPHILS % (AUTO) 0.1 % (0-1); EOSINOPHILS # (AUTO) 0.1 X10'3 (0-0.9); EOSINOPHILS % (AUTO) 1.2 % (0-6); HEMATOCRIT 34.7 % (35.0-45.0); HEMOGLOBIN 10.9 g/dl (12.0-16.0); LYMPHOCYTES # (AUTO) 0.9 X10'3 (1.1-4.8); LYMPHOCYTES % (AUTO) 11.6 % (21-51); MEAN CORPUSCULAR HEMOGLOBIN 28.9 PG (27.0-31.0); MEAN CORPUSCULAR HGB CONC 31.5 g/dL (33.0-36.5); MEAN CORPUSCULAR VOLUME 91.7 FL (78-98); MEAN PLATELET VOLUME 9.1 FL (7.4-10.4); MONOCYTES # (AUTO) 0.9 X10'3 (0-0.9); MONOCYTES % (AUTO) 12.2 % (2-12); NEUTROPHILS # (AUTO) 5.6 X10'3 (1.8-7.7); NEUTROPHILS % (AUTO) 74.9 % (42-75); PLATELET COUNT 226 X10'3 (140-440); RED BLOOD COUNT 3.79 X10'6 (4.20-5.60); RED CELL DISTRIBUTION WIDTH 17.6 % (11.5-14.5); WHITE BLOOD COUNT 7.5 X10'3 (4.5-11.0)
[2020-08-20 08:00] VITALS: BP 112/64
[2020-08-20] MEDS: K and/or MAG REPLACEMENT MC SCH ×2 (08:00→20:00)
[2020-08-20] MEDS: carvedilol 6.25mg tablet PO SCH ×2 (08:00→21:07)
[2020-08-20] MEDS: mineral oil/petrolatum, white cream 113gm jar TP SCH (08:00)
[2020-08-20] MEDS: acetaZOLAMIDE 250mg tablet PO SCH ×2 (08:00→21:08)
[2020-08-20] MEDS: aspirin 81mg tablet.DR PO SCH (08:01)
[2020-08-20] MEDS: docusate sod 100mg capsule PO SCH ×2 (08:01→21:08)
[2020-08-20] MEDS: apixaban 2.5mg tablet PO SCH ×2 (08:01→21:08)
[2020-08-20] MEDS: furosemide 40mg/4ml inj IV SCH (08:02)
[2020-08-20 08:05] LABS: ALANINE AMINOTRANSFERASE 43 U/L (12-78); ALBUMIN 2.4 G/DL (3.4-5.0); ALBUMIN/GLOBULIN RATIO 0.8 (1.1-1.5); ALKALINE PHOSPHATASE 122 IU/L (46-116); ANION GAP 5 (8-16); ASPARTATE AMINO TRANSFERASE 31 U/L (10-37); BILIRUBIN,TOTAL 0.4 MG/DL (0.1-1.0); BLOOD UREA NITROGEN 115 MG/DL (7-18); BUN/CREATININE RATIO 50.7 (6.6-38.0); CALCIUM 9.3 MG/DL (8.5-10.1); CHLORIDE 95 MMOL/L (99-107); CREATININE 2.27 MG/DL (0.40-0.90); GLUCOSE 90 MG/DL (70-104); POTASSIUM 3.3 MMOL/L (3.5-5.1); SODIUM 141 MMOL/L (135-145); TOTAL PROTEIN 5.4 G/DL (6.4-8.2); eGFR 21 ML/MIN
[2020-08-20 08:07] LABS: TOTAL CARBON DIOXIDE 41.4 MMOL/L (24-32)
[2020-08-20] MEDS ORDERED: prednisone 10mg tablet PO SCH (08:30)
[2020-08-20] MEDS ORDERED: lisinopril 2.5mg tablet PO SCH (08:35)
--- NOTE | 2020-08-20 08:38 | NUR ---
Dr Ragsdale in to see pt. new order to hold Lasix.
[2020-08-20] MEDS: ipratropium/albuterol 3ml nebule NEB SCH ×3 (08:48→20:35)
[2020-08-20] MEDS: insulin Lispro (HumaLOG) vial - multi-dose SQ SCH ×3 (09:22→19:21)
[2020-08-20] MEDS: potassium Cl 20 mEq SR tablet PO PRN ×2 (10:43→21:17)
[2020-08-20 11:46] LABS: CLARITY,URINE SLIGHTLY CLOUDY (Clear); COLOR,URINE STRAW (Yellow); GLUCOSE, URINE NEGATIVE (Neg); KETONES,URINE NEGATIVE (Neg); LEUKOCYTE ESTERASE ,URINE LARGE (Neg); NITRITES, URINE NEGATIVE (Neg); OCCULT BLOOD,URINE TRACE-INTACT (Neg); PH,URINE 7.5 (4.8-8.0); PROTEIN,URINE NEGATIVE (Neg); UROBILINOGEN,URINE 0.2 E.U/dL (0.2-1.0)
[2020-08-20 11:48] LABS: TOTAL PROTEIN,URINE RANDOM 13.2 MG/DL
[2020-08-20 11:58] LABS: UA COLLECTION TYPE FOLEY CATH
[2020-08-20 12:00] VITALS: BP 114/51
[2020-08-20 12:01] LABS: SQUAMOUS EPITHELIAL CELL,UR FEW /LPF (FEW); TRANSITIONAL EPI CELLS,URINE MODERATE /HPF; WBC CLUMPS,URINE FEW /HPF (NEGATIVE)
[2020-08-20 12:07] LABS: WBC,URINE 50-100 /HPF (0-4)
[2020-08-20 12:08] LABS: BACTERIA,URINE 2+ /HPF (Neg); RBC,URINE 0-2 /HPF (0-2)
[2020-08-20 14:00] LABS: UA EOSINOPHILS NO EOS /HPF
--- NOTE | 2020-08-20 18:13 | NUR ---
PAGER ID: [phone] MESSAGE: Jackie/surgical [id number]. Pt; Phong. Rm: 349-A . Pt K+ 3.3 Cr 2.27, Bun 115, GFR 21. Gave one dose 20 K replacement this morning . Do you want to continue with protocol? Do not continue protocol and recheck K in the AM, per DR Biggs.
--- NOTE | 2020-08-20 18:23 | NUR ---
Problems reprioritized. Patient report given, questions answered & plan of care reviewed with CHRISTIANO Momin.
[2020-08-20 20:00] VITALS: BP 108/53
[2020-08-20] MEDS: atorvastatin 20mg tablet PO SCH (21:08)
[2020-08-20] MEDS: insulin glargine (Lantus) pen - multi-dose SQ SCH (21:17)
[2020-08-21] VITALS (23 sets, daily range): BP systolic 110–148; BP diastolic 50–84
--- NOTE | 2020-08-21 06:35 | NUR ---
Problems reprioritized. Patient report given, questions answered & plan of care reviewed with Jackie ALVARADO.
--- NOTE | 2020-08-21 06:46 | NUR ---
Patient in room ANANDA 349. I have received report from CHRISTIANO Momin and had the opportunity to ask questions and assume patient care.
[2020-08-21 07:20] LABS: BASOPHILS % (AUTO) 0.1 % (0-1); EOSINOPHILS # (AUTO) 0.3 X10'3 (0-0.9); EOSINOPHILS % (AUTO) 3.8 % (0-6); HEMATOCRIT 33.8 % (35.0-45.0); HEMOGLOBIN 10.8 g/dl (12.0-16.0); LYMPHOCYTES # (AUTO) 0.9 X10'3 (1.1-4.8); MEAN CORPUSCULAR HEMOGLOBIN 28.9 PG (27.0-31.0); MEAN CORPUSCULAR HGB CONC 31.9 g/dL (33.0-36.5); MEAN CORPUSCULAR VOLUME 90.8 FL (78-98); MEAN PLATELET VOLUME 9.1 FL (7.4-10.4); MONOCYTES # (AUTO) 0.9 X10'3 (0-0.9); MONOCYTES % (AUTO) 11.1 % (2-12); NEUTROPHILS # (AUTO) 5.8 X10'3 (1.8-7.7); PLATELET COUNT 209 X10'3 (140-440); RED BLOOD COUNT 3.72 X10'6 (4.20-5.60); RED CELL DISTRIBUTION WIDTH 17.5 % (11.5-14.5); WHITE BLOOD COUNT 7.8 X10'3 (4.5-11.0)
[2020-08-21 07:22] LABS: ALANINE AMINOTRANSFERASE 42 U/L (12-78); ALBUMIN 2.4 G/DL (3.4-5.0); ALBUMIN/GLOBULIN RATIO 0.8 (1.1-1.5); ALKALINE PHOSPHATASE 116 IU/L (46-116); ANION GAP 0 (8-16); ASPARTATE AMINO TRANSFERASE 29 U/L (10-37); BILIRUBIN,TOTAL 0.4 MG/DL (0.1-1.0); BLOOD UREA NITROGEN 121 MG/DL (7-18); BUN/CREATININE RATIO 53.5 (6.6-38.0); CALCIUM 8.6 MG/DL (8.5-10.1); CHLORIDE 98 MMOL/L (99-107); CREATININE 2.26 MG/DL (0.40-0.90); GLUCOSE 100 MG/DL (70-104); POTASSIUM 3.2 MMOL/L (3.5-5.1); SODIUM 142 MMOL/L (135-145); TOTAL PROTEIN 5.3 G/DL (6.4-8.2); eGFR 21 ML/MIN
[2020-08-21 07:28] LABS: TOTAL CARBON DIOXIDE 44.1 MMOL/L (24-32)
[2020-08-21] MEDS: K and/or MAG REPLACEMENT MC SCH ×3 (08:00→20:00)
[2020-08-21] MEDS: aspirin 81mg tablet.DR PO SCH (08:03)
[2020-08-21] MEDS: acetaZOLAMIDE 250mg tablet PO SCH ×2 (08:03→18:52)
[2020-08-21] MEDS: docusate sod 100mg capsule PO SCH ×2 (08:03→18:52)
[2020-08-21] MEDS: apixaban 2.5mg tablet PO SCH ×2 (08:03→18:54)
[2020-08-21] MEDS: carvedilol 6.25mg tablet PO SCH ×2 (08:03→18:53)
--- NOTE | 2020-08-21 08:55 | NUR ---
PAGER ID: [phone] MESSAGE: Jackie surgical [phone]. Pt: Phong. Rm: 349-A FYI: critical Lab CO2=44.1. K= 3.2. Do you want to replace K? thanks
[2020-08-21] MEDS ORDERED: potassium Cl 20 mEq SR tablet PO PRN (09:00)
[2020-08-21] MEDS ORDERED: potassium Cl 40MEQ/1/2NS 520ml 520 ML IV PRN (09:00)
[2020-08-21] MEDS ORDERED: magnesium 2GM in 50ml NS 50 ML IV PRN (09:00)
[2020-08-21] MEDS ORDERED: magnesium 4gm in 100ml NS 100 ML IV PRN (09:00)
[2020-08-21] MEDS: insulin Lispro (HumaLOG) vial - multi-dose SQ SCH ×3 (09:26→18:50)
[2020-08-21] MEDS: potassium Cl 20 mEq SR tablet PO PRN ×2 (09:30→17:08)
[2020-08-21] MEDS: ipratropium/albuterol 3ml nebule NEB SCH ×3 (09:31→20:36)
[2020-08-21 09:40] LABS: MAGNESIUM 2.7 MG/DL (1.5-2.4)
--- NOTE | 2020-08-21 10:41 | NUR ---
Called for report over on surgical. Nurse was unavailable at that time.
--- NOTE | 2020-08-21 11:00 | NUR ---
Received report from Kim preceptor.
--- NOTE | 2020-08-21 11:00 | NUR ---
Received report from CHRISTIANO Mejia from Med/Surg. Awaiting patient arrival to room 3027B.
--- NOTE | 2020-08-21 11:20 | NUR ---
Patient arrived to room 3027B via bed. Patient stayed in bed and didn't transfer out of bed. Vital signs temp 97.7, HR 77, RR 20, BP 114/65, pain 0/10. Bed locked and lowered, nonskid socks on, call light in reach and in no acute distress. Will continue to monitor.
--- NOTE | 2020-08-21 11:26 | NUR ---
Pt transferred to Tele. report given to CHRISTIANO Alvarez.
--- NOTE | 2020-08-21 11:30 | NUR ---
Pt arrived to the floor, tucked in, vitals taken, provided comfort measures
[2020-08-21] MEDS: DOBUTamine-DoBUTrex 500mg/D5W 250 ML IV SCH (12:40)
--- NOTE | 2020-08-21 12:43 | NUR ---
Patient started on dobutamine gtt. Patient had an infiltrated IV when arrived to the unit. PICC nurse had to come and place a 20g to her right forearm.
--- NOTE | 2020-08-21 13:14 | NUR ---
Orders to increase dobutamine drip from 2mcg to 5mcg put in per Dr. Biggs.
[2020-08-21] MEDS: mineral oil/petrolatum, white cream 113gm jar TP SCH (13:32)
--- NOTE | 2020-08-21 14:28 | NUR ---
Paged Dr. Biggs regarding patient having a 5 beat run of V-tach. PAGER ID: [phone] MESSAGE: [id number]. Ebonie Watkins. Patient had a 5 beat run of V-tach while patient was working with PT. Thank you. Kim ALVARADO x [phone] Addendum: 08/21/20 at 1429 by iKm Rae RN Dr. Biggs called back and no new orders were received.
--- NOTE | 2020-08-21 14:32 | NUR ---
Paged Dr. Biggs regarding a continuation for PT on telemetry. PAGER ID: [phone] MESSAGE: [id number]. Ebonie Watkins. Can I order for continuation for PT? Thank you. Kim ALVARADO x [phone]
--- NOTE | 2020-08-21 18:09 | NUR ---
Report given to Missy
--- NOTE | 2020-08-21 18:14 | NUR ---
[place] documentation: I have reviewed and agree with all interventions, assessments performed and documented by CHRISTIANO Valle.
--- NOTE | 2020-08-21 18:15 | NUR ---
[place] Medication Administration: For this medication-pass time frame, all medication were reviewed, dispensed, administered and documented per hospital policy by CHRISTIANO Valle.
--- NOTE | 2020-08-21 18:37 | NUR ---
Patient in room PCU 3027. I have received report from Tori ALVARADO and had the opportunity to ask questions and assume patient care.
[2020-08-21] MEDS: atorvastatin 20mg tablet PO SCH (18:52)
[2020-08-21] MEDS: insulin glargine (Lantus) pen - multi-dose SQ SCH (21:37)
[2020-08-22] VITALS (14 sets, daily range): BP systolic 114–160; BP diastolic 45–71
[2020-08-22] MEDS: DOBUTamine-DoBUTrex 500mg/D5W 250 ML IV SCH ×2 (05:32→23:24)
[2020-08-22 06:02] LABS: PLATELET COUNT 208 X10'3 (140-440)
[2020-08-22 06:05] LABS: BASOPHILS % (AUTO) 0.1 % (0-1); EOSINOPHILS # (AUTO) 0.4 X10'3 (0-0.9); EOSINOPHILS % (AUTO) 4.4 % (0-6); HEMATOCRIT 32.8 % (35.0-45.0); HEMOGLOBIN 10.6 g/dl (12.0-16.0); LYMPHOCYTES % (AUTO) 10.5 % (21-51); MEAN CORPUSCULAR HEMOGLOBIN 29.5 PG (27.0-31.0); MEAN CORPUSCULAR HGB CONC 32.3 g/dL (33.0-36.5); MEAN CORPUSCULAR VOLUME 91.3 FL (78-98); MONOCYTES % (AUTO) 10.1 % (2-12); NEUTROPHILS # (AUTO) 7.3 X10'3 (1.8-7.7); NEUTROPHILS % (AUTO) 74.9 % (42-75); WHITE BLOOD COUNT 9.8 X10'3 (4.5-11.0)
--- NOTE | 2020-08-22 06:20 | NUR ---
Patient in room PCU 3027. I have received report from CHRISTIANO Louis and had the opportunity to ask questions and assume patient care.
[2020-08-22 06:24] LABS: ALANINE AMINOTRANSFERASE 38 U/L (12-78); ALBUMIN 2.4 G/DL (3.4-5.0); ALBUMIN/GLOBULIN RATIO 0.9 (1.1-1.5); ALKALINE PHOSPHATASE 110 IU/L (46-116); ANION GAP 2 (8-16); ASPARTATE AMINO TRANSFERASE 28 U/L (10-37); BILIRUBIN,TOTAL 0.7 MG/DL (0.1-1.0); BLOOD UREA NITROGEN 114 MG/DL (7-18); BUN/CREATININE RATIO 51.4 (6.6-38.0); CALCIUM 8.8 MG/DL (8.5-10.1); CHLORIDE 101 MMOL/L (99-107); CREATININE 2.22 MG/DL (0.40-0.90); GLUCOSE 89 MG/DL (70-104); MAGNESIUM 2.8 MG/DL (1.5-2.4); POTASSIUM 3.2 MMOL/L (3.5-5.1); SODIUM 143 MMOL/L (135-145); TOTAL PROTEIN 5.2 G/DL (6.4-8.2); eGFR 22 ML/MIN
--- NOTE | 2020-08-22 06:25 | NUR ---
Problems reprioritized. Patient report given, questions answered & plan of care reviewed with Dona ALVARADO.
[2020-08-22 06:45] LABS: TOTAL CARBON DIOXIDE 40.3 MMOL/L (24-32)
[2020-08-22] MEDS: aspirin 81mg tablet.DR PO SCH (07:11)
[2020-08-22] MEDS: acetaZOLAMIDE 250mg tablet PO SCH ×2 (07:11→20:45)
[2020-08-22] MEDS: docusate sod 100mg capsule PO SCH ×2 (07:11→20:45)
[2020-08-22] MEDS: apixaban 2.5mg tablet PO SCH ×2 (07:11→20:45)
[2020-08-22] MEDS: carvedilol 6.25mg tablet PO SCH ×2 (07:11→20:45)
[2020-08-22] MEDS: potassium Cl 20 mEq SR tablet PO PRN ×3 (07:13→20:45)
[2020-08-22] MEDS: K and/or MAG REPLACEMENT MC SCH ×4 (07:14→20:39)
[2020-08-22] MEDS: mineral oil/petrolatum, white cream 113gm jar TP SCH (08:00)
[2020-08-22] MEDS: ipratropium/albuterol 3ml nebule NEB SCH ×3 (08:01→21:06)
[2020-08-22] MEDS: furosemide 40mg/4ml inj IV SCH (09:30)
[2020-08-22] MEDS: insulin Lispro (HumaLOG) vial - multi-dose SQ SCH ×3 (10:16→19:08)
--- NOTE | 2020-08-22 18:20 | NUR ---
Problems reprioritized. Patient report given, questions answered & plan of care reviewed with CHRISTIANO Hyatt.
[2020-08-22] MEDS: atorvastatin 20mg tablet PO SCH (20:45)
[2020-08-22] MEDS: insulin glargine (Lantus) pen - multi-dose SQ SCH (20:49)
[2020-08-23] VITALS (13 sets, daily range): BP systolic 96–142; BP diastolic 48–80
--- NOTE | 2020-08-23 03:06 | NUR ---
AGREE WITH FORMER ASSESSMENT
--- NOTE | 2020-08-23 06:11 | NUR ---
Problems reprioritized. Patient report given, questions answered & plan of care reviewed with Dona ALVARADO.
--- NOTE | 2020-08-23 06:12 | NUR ---
Patient in room PCU 3027. I have received report from CHRISTIANO Hyatt and had the opportunity to ask questions and assume patient care.
[2020-08-23] MEDS: carvedilol 6.25mg tablet PO SCH ×2 (07:24→19:41)
[2020-08-23] MEDS: aspirin 81mg tablet.DR PO SCH (07:24)
[2020-08-23] MEDS: docusate sod 100mg capsule PO SCH ×2 (07:24→19:41)
[2020-08-23] MEDS: apixaban 2.5mg tablet PO SCH ×2 (07:24→19:41)
[2020-08-23] MEDS: acetaZOLAMIDE 250mg tablet PO SCH ×2 (07:24→19:41)
[2020-08-23] MEDS: mineral oil/petrolatum, white cream 113gm jar TP SCH (08:00)
[2020-08-23] MEDS: K and/or MAG REPLACEMENT MC SCH ×4 (08:00→20:00)
[2020-08-23 08:17] LABS: MAGNESIUM 2.6 MG/DL (1.5-2.4)
[2020-08-23 09:16] LABS: BASOPHILS % (AUTO) 0.3 % (0-1); EOSINOPHILS # (AUTO) 0.3 X10'3 (0-0.9); HEMATOCRIT 32.6 % (35.0-45.0); HEMOGLOBIN 10.4 g/dl (12.0-16.0); LYMPHOCYTES # (AUTO) 1.2 X10'3 (1.1-4.8); LYMPHOCYTES % (AUTO) 12.8 % (21-51); MEAN CORPUSCULAR HEMOGLOBIN 29.2 PG (27.0-31.0); MEAN CORPUSCULAR HGB CONC 31.9 g/dL (33.0-36.5); MEAN CORPUSCULAR VOLUME 91.6 FL (78-98); MEAN PLATELET VOLUME 9.3 FL (7.4-10.4); MONOCYTES # (AUTO) 0.8 X10'3 (0-0.9); MONOCYTES % (AUTO) 8.9 % (2-12); NEUTROPHILS # (AUTO) 6.8 X10'3 (1.8-7.7); PLATELET COUNT 192 X10'3 (140-440); RED BLOOD COUNT 3.56 X10'6 (4.20-5.60); RED CELL DISTRIBUTION WIDTH 17.6 % (11.5-14.5)
[2020-08-23 09:34] LABS: ALANINE AMINOTRANSFERASE 34 U/L (12-78); ALBUMIN 2.3 G/DL (3.4-5.0); ALBUMIN/GLOBULIN RATIO 0.8 (1.1-1.5); ALKALINE PHOSPHATASE 109 IU/L (46-116); ANION GAP 7 (8-16); ASPARTATE AMINO TRANSFERASE 28 U/L (10-37); BILIRUBIN,TOTAL 0.8 MG/DL (0.1-1.0); BLOOD UREA NITROGEN 101 MG/DL (7-18); BUN/CREATININE RATIO 49.8 (6.6-38.0); CALCIUM 8.7 MG/DL (8.5-10.1); CHLORIDE 103 MMOL/L (99-107); CREATININE 2.03 MG/DL (0.40-0.90); GLUCOSE 96 MG/DL (70-104); POTASSIUM 3.2 MMOL/L (3.5-5.1); SODIUM 146 MMOL/L (135-145); TOTAL CARBON DIOXIDE 36.5 MMOL/L (24-32); TOTAL PROTEIN 5.2 G/DL (6.4-8.2); eGFR 24 ML/MIN
[2020-08-23] MEDS: ipratropium/albuterol 3ml nebule NEB SCH ×3 (09:38→21:00)
[2020-08-23] MEDS: potassium Cl 20 mEq SR tablet PO PRN ×2 (09:58→21:12)
[2020-08-23] MEDS: insulin Lispro (HumaLOG) vial - multi-dose SQ SCH ×3 (10:36→19:40)
--- NOTE | 2020-08-23 11:00 | NUR ---
Patient refused q2h turns. Discussed risk and benefits of not turning, to which the patient replied "I don't want to move.. jeff already moved earlier today. Move me later."
--- NOTE | 2020-08-23 14:45 | NUR ---
After frequent leaking from cross catheter, old cross discontinued. 8ml of water pulled from balloon. An 18g cross catheter placed per Dr. Biggs.
[2020-08-23] MEDS: DOBUTamine-DoBUTrex 500mg/D5W 250 ML IV SCH (17:55)
--- NOTE | 2020-08-23 18:19 | NUR ---
Problems reprioritized. Patient report given, questions answered & plan of care reviewed with CHRISTIANO Ybarra.
[2020-08-23] MEDS: atorvastatin 20mg tablet PO SCH (21:12)
[2020-08-23] MEDS: insulin glargine (Lantus) pen - multi-dose SQ SCH (21:15)
[2020-08-24] MEDS: K and/or MAG REPLACEMENT MC SCH ×4 (01:09→20:00)
[2020-08-24] MEDS: potassium Cl 20 mEq SR tablet PO PRN (01:09)
[2020-08-24 02:00] VITALS: BP 125/61
--- NOTE | 2020-08-24 06:38 | NUR ---
Problems reprioritized. Patient report given, questions answered & plan of care reviewed with Amada Christy RN and [facility]
[2020-08-24 07:00] VITALS: BP 105/59
[2020-08-24] MEDS: mineral oil/petrolatum, white cream 113gm jar TP SCH (08:00)
[2020-08-24 08:11] LABS: ALANINE AMINOTRANSFERASE 28 U/L (12-78); ALBUMIN 2.2 G/DL (3.4-5.0); ALBUMIN/GLOBULIN RATIO 0.7 (1.1-1.5); ALKALINE PHOSPHATASE 99 IU/L (46-116); ANION GAP 4 (8-16); ASPARTATE AMINO TRANSFERASE 22 U/L (10-37); BLOOD UREA NITROGEN 91 MG/DL (7-18); BUN/CREATININE RATIO 47.2 (6.6-38.0); CALCIUM 8.7 MG/DL (8.5-10.1); CHLORIDE 104 MMOL/L (99-107); CREATININE 1.93 MG/DL (0.40-0.90); GLUCOSE 86 MG/DL (70-104); MAGNESIUM 2.6 MG/DL (1.5-2.4); POTASSIUM 3.6 MMOL/L (3.5-5.1); SODIUM 143 MMOL/L (135-145); TOTAL PROTEIN 5.4 G/DL (6.4-8.2); eGFR 25 ML/MIN
[2020-08-24 08:21] LABS: BASOPHILS % (AUTO) 0.4 % (0-1); EOSINOPHILS # (AUTO) 0.2 X10'3 (0-0.9); EOSINOPHILS % (AUTO) 2.9 % (0-6); HEMATOCRIT 32.6 % (35.0-45.0); HEMOGLOBIN 10.3 g/dl (12.0-16.0); LYMPHOCYTES # (AUTO) 0.8 X10'3 (1.1-4.8); LYMPHOCYTES % (AUTO) 9.5 % (21-51); MEAN CORPUSCULAR HGB CONC 31.8 g/dL (33.0-36.5); MEAN CORPUSCULAR VOLUME 91.3 FL (78-98); MEAN PLATELET VOLUME 9.6 FL (7.4-10.4); MONOCYTES # (AUTO) 0.9 X10'3 (0-0.9); MONOCYTES % (AUTO) 11.5 % (2-12); NEUTROPHILS # (AUTO) 6.2 X10'3 (1.8-7.7); NEUTROPHILS % (AUTO) 75.7 % (42-75); PLATELET COUNT 183 X10'3 (140-440); RED BLOOD COUNT 3.57 X10'6 (4.20-5.60); RED CELL DISTRIBUTION WIDTH 17.3 % (11.5-14.5); WHITE BLOOD COUNT 8.1 X10'3 (4.5-11.0)
[2020-08-24] MEDS: ipratropium/albuterol 3ml nebule NEB SCH ×3 (08:26→20:53)
[2020-08-24] MEDS: aspirin 81mg tablet.DR PO SCH (09:32)
[2020-08-24] MEDS: apixaban 2.5mg tablet PO SCH ×2 (09:33→21:43)
[2020-08-24] MEDS: acetaZOLAMIDE 250mg tablet PO SCH ×2 (09:33→21:42)
[2020-08-24] MEDS: carvedilol 6.25mg tablet PO SCH ×2 (09:33→21:42)
[2020-08-24] MEDS: docusate sod 100mg capsule PO SCH ×2 (09:33→21:42)
[2020-08-24] MEDS: insulin Lispro (HumaLOG) vial - multi-dose SQ SCH ×2 (09:37→13:52)
[2020-08-24] MEDS: DOBUTamine-DoBUTrex 500mg/D5W 250 ML IV SCH ×2 (10:28→12:21)
[2020-08-24 11:00] VITALS: BP 117/58
--- NOTE | 2020-08-24 15:47 | NUR ---
Patient was refusing turns today until this afternoon.
--- NOTE | 2020-08-24 18:33 | NUR ---
Problems reprioritized. Patient report given, questions answered & plan of care reviewed with Dayanara ALVARADO.
[2020-08-24 19:00] VITALS: BP 120/65
[2020-08-24 21:00] VITALS: BP 137/58
[2020-08-24] MEDS: insulin glargine (Lantus) pen - multi-dose SQ SCH (21:00)
[2020-08-24] MEDS: atorvastatin 20mg tablet PO SCH (21:43)
[2020-08-24 23:00] VITALS: BP 128/63
[2020-08-25] VITALS (11 sets, daily range): BP systolic 83–138; BP diastolic 50–76
[2020-08-25 06:20] LABS: BASOPHILS % (AUTO) 0.4 % (0-1); EOSINOPHILS # (AUTO) 0.3 X10'3 (0-0.9); EOSINOPHILS % (AUTO) 4.4 % (0-6); HEMATOCRIT 31.3 % (35.0-45.0); HEMOGLOBIN 10.1 g/dl (12.0-16.0); LYMPHOCYTES % (AUTO) 15.7 % (21-51); MEAN CORPUSCULAR HEMOGLOBIN 29.9 PG (27.0-31.0); MEAN CORPUSCULAR HGB CONC 32.4 g/dL (33.0-36.5); MEAN CORPUSCULAR VOLUME 92.2 FL (78-98); MEAN PLATELET VOLUME 9.4 FL (7.4-10.4); MONOCYTES # (AUTO) 0.7 X10'3 (0-0.9); MONOCYTES % (AUTO) 11.2 % (2-12); NEUTROPHILS # (AUTO) 4.4 X10'3 (1.8-7.7); NEUTROPHILS % (AUTO) 68.3 % (42-75); PLATELET COUNT 190 X10'3 (140-440); RED BLOOD COUNT 3.39 X10'6 (4.20-5.60); WHITE BLOOD COUNT 6.5 X10'3 (4.5-11.0)
[2020-08-25 06:35] LABS: ALANINE AMINOTRANSFERASE 23 U/L (12-78); ALBUMIN 2.2 G/DL (3.4-5.0); ALBUMIN/GLOBULIN RATIO 0.7 (1.1-1.5); ALKALINE PHOSPHATASE 98 IU/L (46-116); ANION GAP 3 (8-16); ASPARTATE AMINO TRANSFERASE 21 U/L (10-37); BILIRUBIN,TOTAL 0.8 MG/DL (0.1-1.0); BLOOD UREA NITROGEN 82 MG/DL (7-18); BUN/CREATININE RATIO 42.9 (6.6-38.0); CALCIUM 8.4 MG/DL (8.5-10.1); CHLORIDE 106 MMOL/L (99-107); CREATININE 1.91 MG/DL (0.40-0.90); GLUCOSE 109 MG/DL (70-104); MAGNESIUM 2.6 MG/DL (1.5-2.4); POTASSIUM 3.3 MMOL/L (3.5-5.1); SODIUM 144 MMOL/L (135-145); TOTAL CARBON DIOXIDE 34.6 MMOL/L (24-32); TOTAL PROTEIN 5.4 G/DL (6.4-8.2); eGFR 26 ML/MIN
--- NOTE | 2020-08-25 06:55 | NUR ---
Patient in room PCU 3027. I have received report from CHRISTIANO Nichole and had the opportunity to ask questions and assume patient care. Patient asleep in bed and in no acute distress.
[2020-08-25] MEDS: docusate sod 100mg capsule PO SCH ×2 (07:54→20:49)
[2020-08-25] MEDS: aspirin 81mg tablet.DR PO SCH (07:54)
[2020-08-25] MEDS: apixaban 2.5mg tablet PO SCH (07:55)
[2020-08-25] MEDS: acetaZOLAMIDE 250mg tablet PO SCH ×2 (07:55→20:49)
[2020-08-25] MEDS: carvedilol 6.25mg tablet PO SCH ×2 (07:55→20:49)
[2020-08-25] MEDS: mineral oil/petrolatum, white cream 113gm jar TP SCH (07:56)
[2020-08-25] MEDS: K and/or MAG REPLACEMENT MC SCH ×4 (08:00→20:00)
[2020-08-25] MEDS: ipratropium/albuterol 3ml nebule NEB SCH ×3 (08:16→21:13)
--- NOTE | 2020-08-25 08:35 | NUR ---
Patient refused morning dose of Humalog because she said that she didn't receive any nighttime insulin and her blood sugar was still low. She did not want to be covered for the carbs that she ate for breakfast.
[2020-08-25 08:49] LABS: ALBUMIN 2.3 G/DL (3.4-5.0); ANION GAP 6 (8-16); BLOOD UREA NITROGEN 82 MG/DL (7-18); BUN/CREATININE RATIO 43.4 (6.6-38.0); CALCIUM 8.4 MG/DL (8.5-10.1); CHLORIDE 105 MMOL/L (99-107); CREATININE 1.89 MG/DL (0.40-0.90); GLUCOSE 136 MG/DL (70-104); POTASSIUM 3.5 MMOL/L (3.5-5.1); SODIUM 146 MMOL/L (135-145); TOTAL CARBON DIOXIDE 35.1 MMOL/L (24-32); eGFR 26 ML/MIN
[2020-08-25] MEDS: DOBUTamine-DoBUTrex 500mg/D5W 250 ML IV SCH (10:23)
--- NOTE | 2020-08-25 12:07 | NUR ---
Orders for morning labs of CBC, BNP, and BMP until 08/30/[address] Ray.
[2020-08-25] MEDS: insulin Lispro (HumaLOG) vial - multi-dose SQ SCH (13:18)
--- NOTE | 2020-08-25 14:46 | NUR ---
Called Dudley, her daughter to give an update.
--- NOTE | 2020-08-25 15:27 | NUR ---
Reassessment: Pt PO fluctuating overall ~75-100% avg meals w/ double proteins BIDLD and chopped meats meeting needs. LBM 08/24. No nutrition concerns at this time. Will continue to monitor. Recommendations: 1) Continue CHO controlled, 2L fluid restricted diet w/ chopped meats per MD 2) Double protein BIDLD 3) bowel care per rx 4) Scaled weights per rx Addendum: 08/25/20 at [address] Amended: Links added.
--- NOTE | 2020-08-25 16:21 | NUR ---
Paged Dr. Ray regarding patient having a 9 beat run of Vtach. PAGER ID: [phone] MESSAGE: [id number]. Ebonie Watkins. Patient had a 9 beat run of Vtach. Thank you. Kim ALVARADO x [phone]
--- NOTE | 2020-08-25 18:26 | NUR ---
Problems reprioritized. Patient report given, questions answered & plan of care reviewed with CHRISTIANO Jones. Patient stable at transfer of care.
--- NOTE | 2020-08-25 19:00 | NUR ---
Patient in room PCU 3027. I have received report from Kim ALVARADO and had the opportunity to ask questions and assume patient care.
--- NOTE | 2020-08-25 19:17 | NUR ---
Pt refusing humalog for carb coverage at this time. Blood glucose of 149 does not require any coverage.
[2020-08-25] MEDS: atorvastatin 20mg tablet PO SCH (20:49)
[2020-08-25] MEDS: apixaban 5mg tablet PO SCH (20:49)
[2020-08-25] MEDS: insulin glargine (Lantus) pen - multi-dose SQ SCH (21:58)
[2020-08-26 02:00] VITALS: BP 120/62
[2020-08-26] MEDS: DOBUTamine-DoBUTrex 500mg/D5W 250 ML IV SCH (02:05)
[2020-08-26 05:31] LABS: BASOPHILS % (AUTO) 0.3 % (0-1); EOSINOPHILS # (AUTO) 0.3 X10'3 (0-0.9); EOSINOPHILS % (AUTO) 4.5 % (0-6); HEMATOCRIT 32.7 % (35.0-45.0); HEMOGLOBIN 10.3 g/dl (12.0-16.0); LYMPHOCYTES # (AUTO) 0.9 X10'3 (1.1-4.8); LYMPHOCYTES % (AUTO) 12.4 % (21-51); MEAN CORPUSCULAR HGB CONC 31.7 g/dL (33.0-36.5); MEAN CORPUSCULAR VOLUME 91.6 FL (78-98); MEAN PLATELET VOLUME 9.6 FL (7.4-10.4); MONOCYTES # (AUTO) 0.7 X10'3 (0-0.9); MONOCYTES % (AUTO) 9.2 % (2-12); NEUTROPHILS # (AUTO) 5.6 X10'3 (1.8-7.7); NEUTROPHILS % (AUTO) 73.6 % (42-75); PLATELET COUNT 216 X10'3 (140-440); RED BLOOD COUNT 3.56 X10'6 (4.20-5.60); RED CELL DISTRIBUTION WIDTH 17.7 % (11.5-14.5); WHITE BLOOD COUNT 7.6 X10'3 (4.5-11.0)
[2020-08-26 05:41] LABS: ALANINE AMINOTRANSFERASE 22 U/L (12-78); ALBUMIN 2.2 G/DL (3.4-5.0); ALBUMIN/GLOBULIN RATIO 0.7 (1.1-1.5); ALKALINE PHOSPHATASE 109 IU/L (46-116); ANION GAP 8 (8-16); ASPARTATE AMINO TRANSFERASE 18 U/L (10-37); BILIRUBIN,TOTAL 0.8 MG/DL (0.1-1.0); BLOOD UREA NITROGEN 76 MG/DL (7-18); BUN/CREATININE RATIO 39.6 (6.6-38.0); CALCIUM 8.6 MG/DL (8.5-10.1); CHLORIDE 106 MMOL/L (99-107); CREATININE 1.92 MG/DL (0.40-0.90); GLUCOSE 126 MG/DL (70-104); SODIUM 145 MMOL/L (135-145); TOTAL CARBON DIOXIDE 31.5 MMOL/L (24-32); TOTAL PROTEIN 5.4 G/DL (6.4-8.2); eGFR 26 ML/MIN
--- NOTE | 2020-08-26 05:56 | NUR ---
Paged Dr. Dian Darling 75F Dx of CHF, AFib; critical K+ of 3.0. Will follow protocol.
[2020-08-26] MEDS ORDERED: magnesium 4gm in 100ml NS 100 ML IV PRN (06:15)
[2020-08-26] MEDS ORDERED: magnesium Cl slow-release 64mg tablet PO PRN (06:15)
[2020-08-26] MEDS ORDERED: potassium Cl 20 mEq SR tablet PO PRN (06:15)
[2020-08-26] MEDS ORDERED: potassium Cl 40MEQ/1/2NS 520ml 520 ML IV PRN (06:15)
--- NOTE | 2020-08-26 06:30 | NUR ---
Patient in room U 3027. I have received report from CHRISTINAO Jones and had the opportunity to ask questions and assume patient care. Patient awake in bed and in no acute distress.
--- NOTE | 2020-08-26 06:32 | NUR ---
Problems reprioritized. Patient report given, questions answered & plan of care reviewed with Kim ALVARADO.
[2020-08-26 07:00] VITALS: BP 125/57
[2020-08-26] MEDS: docusate sod 100mg capsule PO SCH (07:26)
[2020-08-26] MEDS: potassium Cl 20 mEq SR tablet PO PRN ×2 (07:27→14:08)
[2020-08-26] MEDS: aspirin 81mg tablet.DR PO SCH (07:28)
[2020-08-26] MEDS: acetaZOLAMIDE 250mg tablet PO SCH (07:28)
[2020-08-26] MEDS: carvedilol 6.25mg tablet PO SCH (07:28)
[2020-08-26] MEDS: apixaban 5mg tablet PO SCH (07:29)
[2020-08-26] MEDS: mineral oil/petrolatum, white cream 113gm jar TP SCH (07:35)
[2020-08-26] MEDS ORDERED: K and/or MAG REPLACEMENT MC SCH (08:00)
[2020-08-26] MEDS: ipratropium/albuterol 3ml nebule NEB SCH ×2 (09:06→15:18)
--- NOTE | 2020-08-26 10:01 | NUR ---
Paged vascular for doppler of the left arm.
[2020-08-26 11:00] VITALS: BP 106/64
--- NOTE | 2020-08-26 12:39 | NUR ---
[place] Medication Administration: For this medication-pass time frame, all medication were reviewed, dispensed, administered and documented per hospital policy by CHRISTIANO Rosario.
[2020-08-26] MEDS: insulin Lispro (HumaLOG) vial - multi-dose SQ SCH (13:32)
--- NOTE | 2020-08-26 14:11 | NUR ---
Problems reprioritized. Patient report given, questions answered & plan of care reviewed with CHRISTIANO Jc. Patient stable at transfer of care.
--- NOTE | 2020-08-26 14:14 | NUR ---
[place]ee documentation: I have reviewed and agree with all interventions, assessments performed and documented by CHRISTIANO Rosario.
--- NOTE | 2020-08-26 16:26 | NUR ---
Received report from Radha ALVARADO. [facility] Abhishek [facility]
== END 2020-08-26 18:10 | DRG 291 ==
LOC: ER 17:35 → ED HOLD 20:28 → PCU 3S 23:24 → SUR 3N 08-19 18:37 → PCU 3S 08-21 11:28
PROVIDERS: ADMIT Family Medicine; ATTEND Internal Medicine
PROC: 5A09357 Assistance with Respiratory Ventilation, Less than 24 Consecutive Hours, Continuous Positive Airway Pressure (ICD-10-PCS; 2020-08-01)
PROC: 5A09357 Assistance with Respiratory Ventilation, Less than 24 Consecutive Hours, Continuous Positive Airway Pressure (ICD-10-PCS; 2020-08-02)
PROC: 5A09357 Assistance with Respiratory Ventilation, Less than 24 Consecutive Hours, Continuous Positive Airway Pressure (ICD-10-PCS; 2020-08-02)
PROC: 0W993ZZ Drainage of Right Pleural Cavity, Percutaneous Approach (ICD-10-PCS; principal; 2020-08-10)
PROC: 5A09357 Assistance with Respiratory Ventilation, Less than 24 Consecutive Hours, Continuous Positive Airway Pressure (ICD-10-PCS; 2020-08-14)
PROC: 5A09357 Assistance with Respiratory Ventilation, Less than 24 Consecutive Hours, Continuous Positive Airway Pressure (ICD-10-PCS; 2020-08-15)
PROC: 5A09357 Assistance with Respiratory Ventilation, Less than 24 Consecutive Hours, Continuous Positive Airway Pressure (ICD-10-PCS; 2020-08-16)
PROC: 5A09357 Assistance with Respiratory Ventilation, Less than 24 Consecutive Hours, Continuous Positive Airway Pressure (ICD-10-PCS; 2020-08-17)
DX: I13.0 Hypertensive heart and chronic kidney disease with heart failure and stage 1 through stage 4 chronic kidney disease, or unspecified chronic kidney disease (principal); I50.23 Acute on chronic systolic (congestive) heart failure; J96.02 Acute respiratory failure with hypercapnia; E43 Unspecified severe protein-calorie malnutrition; N17.9 Acute kidney failure, unspecified; E87.3 Alkalosis; J91.8 Pleural effusion in other conditions classified elsewhere; J44.1 Chronic obstructive pulmonary disease with (acute) exacerbation; E78.5 Hyperlipidemia, unspecified; I48.0 Paroxysmal atrial fibrillation; E66.9 Obesity, unspecified; N18.30 Chronic kidney disease, stage 3 unspecified; E87.6 Hypokalemia; E78.00 Pure hypercholesterolemia, unspecified; E11.22 Type 2 diabetes mellitus with diabetic chronic kidney disease; I25.10 Atherosclerotic heart disease of native coronary artery without angina pectoris; I25.2 Old myocardial infarction; Z82.0 Family history of epilepsy and other diseases of the nervous system; Z82.3 Family history of stroke; Z82.49 Family history of ischemic heart disease and other diseases of the circulatory system; Z79.899 Other long term (current) drug therapy; Z82.5 Family history of asthma and other chronic lower respiratory diseases; Z83.3 Family history of diabetes mellitus; Z68.33 Body mass index [BMI] 33.0-33.9, adult; Z95.1 Presence of aortocoronary bypass graft; I27.20 Pulmonary hypertension, unspecified
CPT/HCPCS: 32555; 36415; 36600; 71045; 76604; 76775; 76937; 80048; 80053; 81001; 82436; 82570; 82803; 82948; 83690; 83735; 83880; 84132; 84133; 84156; 84300; 84443; 84484; 85008; 85018; 85025; 87081; 87207; 93005; 93971; 94640; 94660; 94760; 96374; 97110; 97112; 97116; 97163; 97530; 99285; G0378; J1250; J1650; J1815; J1940; J2930; J7512; Q0163

== ENCOUNTER 2020-09-30 14:07 | Outpatient (CLI) | payer OTHER ==
[~2020-09-30 14:07] MED LIST changes: -CEPH500C5 PO; -DOXY-224 PO; -FERR142T7 PO; +FURO-149 PO; -FURO-150 PO; -METF500T PO; -MULT-933 PO; -OMEP40CA13 PO
== END 2020-09-30 23:59 | disposition home or self-care (01) ==
LOC: CARD DIAG 14:07
PROVIDERS: ATTEND Internal Medicine
DX: I08.3 Combined rheumatic disorders of mitral, aortic and tricuspid valves (principal); I50.30 Unspecified diastolic (congestive) heart failure
CPT/HCPCS: 93306